=== PATIENT | female | born 1980 | race Caucasian/White ===

== ENCOUNTER 2024-10-14 17:34 | Inpatient (IN) | payer OTHER, SELFPAY ==
--- OUTSIDE RECORDS SUMMARY | 2024-10-14 17:44 | XMS_ITS | Encounter Summary ---
Author Organization [facility] Address [address] [place] [address] Care Team Providers Care Junior Project Manager Name Role Phone Oj Hi MD Unavailable Oumar Gamez MD Primary Care Provider [phone] Encounter Details Date Type Department Care Team (Latest Contact Info) Description 10/13/2024 Travel Social History Tobacco Use Types Packs/Day Years Used Date Smoking Tobacco: Every Day Cigarettes Smokeless Tobacco: Never Alcohol Use Standard Drinks/Week Comments No 0 (1 standard drink = 0.6 oz pur e alcohol) Comments No Sex and Gender Information Value Date Recorded Sex Assigned at Female 10/01/2023 4:37 PM EST Legal Sex Female 1:21 PM EDT Gender Identity Female 10/01/2023 4:37 PM EST Sexual Orientation Straight 09/07/2024 11 :19 PM EST documented as of this encounter Plan of Treatment Not on file documented as of this encounter Visit Diagnoses Not on filedocumented in this encounter Care Teams Junior Project Manager Relationship Specialty Start Date End Date Oj Hi MD PCP - Family Medicine 04/07/15 Oumar Gamez MD [address] [place] [address] PCP - General Internal Medicine 05/26/20 documented as of this encounter
--- OUTSIDE RECORDS SUMMARY | 2024-10-14 17:44 | XMS_ITS | Encounter Summary ---
Author Organization [facility] Address [address] [place] [address] Care Team Providers Care Physician In Private Practice Name Role Phone Ambar Patten MD Primary Care Provider Reason for Visit * Reason Onset Date Comments Encounter Created in Error 09/29/2024 Encounter Details Date Type Department Care Team (Late st Contact Info) Description 09/29/2024 Erroneous Telephone Encounter [address] [phone] Ambar Patten MD [address] [place] [address] Social History Tobacco Use Types Packs/Day Years Used Date Smoking Tobacco: Every Day Cigarettes Smokeless Tobacco: Never Comments:Smokes only 1-2/day trying to quit Alcohol Use Standard Drinks/Week Comments Not Currently 0 (1 standard drink = 0.6 oz pur e alcohol) Social Connections Answer Date Recorded Connectedness 0 05/12/2024 Financial Resource Strain Answer Date R ecorded Financial Resource Strain 0 2019 Stress Answer Date Recorded Stress 0 11/23/2019 Physical Activity Answer Date Recorded Physical Activity 0 11/23/2019 Food Insecurity Answer Date Recorded Food 0 10/23/2022 Transportation Needs Answer Date Record ed Transportation 0 10/23/2022 Housing Stability Answer Date Recorded Housing 0 10/23/2022 Safety and Environment Answer Date Stuart rded Safety 0 11/23/2019 Utilities Answer Date Recorded Utilities 0 10/23/2022 Employment Answer Date Recorded Stress 0 10/23/2022 Comments No Sex and Gender Information Value Date Recorded Sex Assigned at Female 09/02/2021 6:42 AM PST Legal Sex Female 12:31 PM PDT Gender Identity Female 09/02/2021 6:42 AM PST Sexual Orientation Choose not to disclose 2021 5:42 AM PST Sexual Orientation Don't know 10/11/2021 5: 42 AM PST documented as of this encounter Nursing Notes * Monalisa Lucas - 09/29/2024 2:33 PM EST error documented in this encounter Plan of Treatment Upcoming Encounters Date Type Department Care Team (Late st Contact Info) Description 10/24/2024 10:30 AM EST Telemedicine Visit [facility] [address] [place] [address] Iveth Acevedo, RN [address] [place] [address] 02/17/2025 12:00 PM EDT Office Visit [facility] [address] [phone] Elvia Mai NP [address] [place] [phone] documented as of this encounter Visit Diagnoses Not on filedocumented in this encounter Additional Health Concerns Assessment Noted Time PHQ-9 Depression Total Score: 7 02/28/20 23 9:20 AM PDT documented as of this encounter Care Teams Physician In Private Practice Relationship Specialty Start Date End Date Ambar Patten MD [address] [place] [address] PCP - General 07/07/22 documented as of this encounter
--- OUTSIDE RECORDS SUMMARY | 2024-10-14 17:44 | XMS_ITS | Encounter Summary ---
Author Organization [facility] Address [address] [place] [address] Care Team Providers Care Car Seat Maker Name Role Phone Ambar Patten MD Primary Care Provider Encounter Details Date Type Department Care Team (Late st Contact Info) Description 04/01/2023 Interim Notes [address] [phone] Abmar Patten MD [address] [place] [address] Social History Tobacco Use Types Packs/Day Years Used Date Smoking Tobacco: Every Day Cigarettes Smokeless Tobacco: Never Comments:Smokes only 1-2/day trying to quit Alcohol Use Standard Drinks/Week Comments Not Currently 0 (1 standard drink = 0.6 oz pur e alcohol) Social Connections Answer Date Recorded Social Connections and Isolation 0 11/23/2019 Financial Resource Strain Answer Date R ecorded [...] Don't know 10/11/2021 5: 42 AM PST COVID-19 Exposure Response Date Recorded In the last 10 days, have yo u been in contact with someone who was confirmed or suspected to have Coronavirus/COVID-19? No / Unsure 03/25/2023 1:20 PM EDT documented as of this encounter Plan of Treatment Upcoming Encounters Date Type Department Care Team (Late st Contact Info) Description 10/24/2024 10:30 AM EST Telemedicine Visit [address] [phone] Iveth Acevedo, KIRAN [address] [place] [address] 02/17/2025 12:00 PM EDT Office Visit [facility] [address] [place] [phone] Elvia Mai NP [address] [place] [address] documented as of this encounter Procedures Procedure Name Priority Date/Time Associated Diagnosis Comments COMPREHENSIVE METABOLIC PANEL Routine 04/01/2023 documented in this encounter Results * COMPREHENSIVE METABOLIC PANEL (04/01/2023) eGFR NOT 100.3 >=60 mL/min/1.7 3m2 [facility] AST 23 15 - 41 U/L [facility] ALT 21 14 - 54 U/L [facility] Blood Blood / Unknown 04/01/2023 us Provider [facility] - BLOOD DRAW Final Result [facility] [address] [place] [address], documented in this encounter Visit Diagnoses Not on filedocumented in this encounter Additional Health Concerns Assessment Noted Time PHQ-9 Depression Total Score: 7 02/28/20 23 9:20 AM PDT documented as of this encounter Care Teams Car Seat Maker Relationship Specialty Start Date End Date Ambar Patten MD [address] [place] [address] PCP - General 07/07/22 documented as of this encounter
--- OUTSIDE RECORDS SUMMARY | 2024-10-14 17:44 | XMS_ITS | Encounter Summary ---
Author Organization [facility] Address [address] [place] [address] Care Team Providers Care Public Address System Operator Name Role Phone Ambar Patten MD Primary Care Provider Encounter Details Date Type Department Care Team (Late st Contact Info) Description 10/09/2022 Interim Notes [address] [phone] Ambar Patten MD [address] [place] [address] Social History Tobacco Use Types Packs/Day Years Used Date Smoking Tobacco: Every Day Cigarettes Smokeless Tobacco: Never Alcohol Use Standard Drinks/Week Comments Not Currently 0 (1 standard drink = 0.6 oz pur e alcohol) Social Connections Answer Date Recorded Social Connections and Isolation 0 11/23/2019 Financial Resource Strain Answer Date R ecorded Financial Resource Strain 0 2019 Stress Answer Date Recorded Stress 0 11/23/2019 Physical Activity Answer Date Recorded Physical Activity 0 11/23/2019 Food Insecurity Answer Date Recorded Food 0 11/23/2019 Transportation Needs Answer Date Record ed Transportation 0 11/23/2019 Housing Stability Answer Date Recorded Housing 0 11/23/2019 Safety and Environment Answer Date Stuart rded Safety 0 11/23/2019 Utilities Answer Date Recorded Utilities 0 11/23/2019 Employment Answer Date Recorded Employment 0 11/23/2019 Comments No Sex and Gender Information Value [...] suspected to have Coronavirus/COVID-19? No / Unsure 10/08/2022 12:48 PM EST documented as of this encounter Plan of Treatment Upcoming Encounters Date Type Department Care Team (Late st Contact Info) Description 10/24/2024 10:30 AM EST Telemedicine Visit [address] [phone] Iveth Acevedo, RN [address] [place] [address] 02/17/2025 12:00 PM EDT Office Visit [place] [address] [address] [place] [phone] Elvia Mai NP [address] [place] [address] documented as of this encounter Procedures Procedure Name Priority Date/Time Associated Diagnosis Comments COMPREHENSIVE METABOLIC PANEL Routine 10/09/2022 documented in this encounter Results * COMPREHENSIVE METABOLIC PANEL (10/09/2022) eGFR NOT 87.7 >=60 mL/min/1.7 3m2 [facility] AST 18 15 - 41 U/L [facility] ALT 18 14 - 54 U/L [facility] Blood Blood / Unknown 10/09/2022 us Provider [facility] - BLOOD DRAW Final Result [facility] [address] [place] [address], [place] [phone] documented in this encounter Visit Diagnoses Not on filedocumented in this encounter Additional Health Concerns Assessment Noted Time PHQ-9 Depression Total Score: 11 022 10:00 AM PDT documented as of this encounter Care Teams Public Address System Operator Relationship Specialty Start Date End Date Ambar Patten MD [address] [place] [address] PCP - General 07/07/22 documented as of this encounter
--- OUTSIDE RECORDS SUMMARY | 2024-10-14 17:44 | XMS_ITS | Clinical Summary ---
Author Organization [facility] Address [address] [place] [address] Phone Care Team Providers Care Rail Specialist Name Role Phone Elias Hiory Primary Care Provider [phone] Allergies Active Allergy Reactions Criticality Noted Date Comments Haloperidol 06/08/2017 Medications clonazePAM (KlonoPIN) 2 MG tablet Take 2 mg by mouth 2 (two) times a day as needed for seizures. Active amphetamine-dext roamphetamine (ADDERALL) 30 MG tablet Take 30 mg by mouth 2 (two) times a day. Active buprenorphine-na loxone (SUBOXONE) 8-2 MG per SL tablet Place 1 tablet under the tongue daily. Active Social History Tobacco Use Types Packs/Day Years Used Date Smoking Tobacco: Every Day Alcohol Use Standard Drinks/Week Comments No 0 (1 standard drink = 0.6 oz pur e alcohol) Comments Unknown Sex and Gender Information Value Date Recorded Sex Assigned at Not on file Legal Sex Female 8:25 AM EDT Gender Identity Not on file Sexual Orientation Not on file Last Filed Vital Signs Vital Sign Reading Time Taken Comments Blood Pressure 102/77 06/11/2017 12:27 PM EDT Pulse 88 06/11/2017 12:27 PM EDT Temperature 37.3 ??C (99.1 ??F) 06/11/2017 1 2:27 PM EDT Respiratory Rate 18 06/11/2017 12:2 7 PM EDT Oxygen Saturation 97% 06/11/2017 12: 27 PM EDT Inhaled Oxygen Concentration - - Weight 52.5 kg (115 lb 11.9 oz) 017 11:51 AM EDT Height 160 cm (5' 3 ) 06/08/2017 11:51 AM EDT Body Mass Index 20.5 06/08/2017 11:51 AM EDT Plan of Treatment Not [place] [id number] Care Teams Rail Specialist Relationship Specialty Start Date End Date Oj Hi [address] [place] [phone] PCP - General 03/05/17
--- OUTSIDE RECORDS SUMMARY | 2024-10-14 17:44 | XMS_ITS | Encounter Summary ---
Author Organization [facility] Address [address] [place] [address] Care Team Providers Care Shaker Tender Name Role Phone Ambar Patten MD Primary Care Provider Encounter Details Date Type Department Care Team (Late st Contact Info) Description 01/14/2024 Interim Notes [address] [phone] Ambar Patten MD [address] [place] [address] Social History Tobacco Use Types Packs/Day Years [...] AM PST documented as of this encounter Plan of Treatment Upcoming Encounters Date Type Department Care Team (Late st Contact Info) Description 10/24/2024 10:30 AM EST Telemedicine Visit [facility] [address] [place] [address] Iveth Acevedo, RN [address] [place] [address] 02/17/2025 12:00 PM EDT Office Visit [facility] [address] [place] [address] Elvia Mai NP [address] [place] [address] documented as of this encounter Procedures Procedure Name Priority Date/Time Associated Diagnosis Comments COMPREHENSIVE METABOLIC PANEL Routine 01/14/2024 documented in this encounter Results * COMPREHENSIVE METABOLIC PANEL (01/14/2024) eGFR NOT 89.7 >=60 mL/min/1.7 3m2 [facility] AST 21 15 - 41 U/L [facility] ALT 19 14 - 54 U/L [facility] Blood Blood / Unknown 01/14/2024 us Provider [facility] - BLOOD DRAW Final Result [facility] [address] [place], [place] [address] [phone] documented in this encounter Visit Diagnoses Not on filedocumented in this encounter Additional Health Concerns Assessment Noted Time PHQ-9 Depression Total Score: 7 02/28/20 23 9:20 AM PDT documented as of this encounter Care Teams Shaker Tender Relationship Specialty Start Date End Date Ambar Patten MD [address] [place] [address] PCP - General 07/07/22 documented as of this encounter
--- OUTSIDE RECORDS SUMMARY | 2024-10-14 17:44 | XMS_ITS | Encounter Summary ---
Author Organization [facility] Address [address] [place] [address] Care Team Providers Care Ceo & Board Director Name Role Phone Ambar Patten MD Primary Care Provider Reason for Visit * Reason Comments Medication Assisted Treatment (MAT) Encounter Details Date Type Department Care Team (Late st Contact Info) Description 10/10/2024 12:00 PM EST Telemedicine Visit [address] [phone] Iveth Acevedo, RN [address] [place] [address] Opioid use disorder, severe, on maintenance therapy ([facility]) (Primary Dx) Social History Tobacco Use Types Packs/Day Years [...] AM PST documented as of this encounter Progress Notes * Iveth Acevedo RN - 10/11/2024 5:17 PM EST TELEHEALTH ENCOUNTER Does the patient consent to this telehealth visit? YES Location of patient: Telehealth Provided in Patient's Home Distant site (location of provider): Provider Home [facility], [place], [place] Technology used to render telehealth service: Audio only. Please indicate why video was not used: Video not indicated/necessary for this encounter Visit duration: 11-20 mins Patient acknowledgement of updated Notice of Privacy Practices If SA55 ESIG Notice of Privacy Practices 2019 is not present in the media tab of the chart, use [id number] or [id number] to document. Suboxone Follow-up Yesika is a 44 year old female who presents for Suboxone follow-up Current Outpatient Medications Medication Sig Dispense Refill buprenorphine-naloxone (SUBOXONE FILM) 4-[address] 1 Strip under the tongue once daily for14 days To be taken with 8 mg strips for a total daily dose of 20mg 14 Each 0 buprenorphine-naloxone (SUBOXONE FILM) 8-[address] 1 Strip under the tongue 2 (two) times daily for 14 days To be taken with 4mg film for total daily dose of 20mg 28 Each 0 clonazePAM (KLONOPIN) 1 mg tablet Take 1 mg by mouth once daily as needed for anxiety ondansetron ODT (ZOFRAN-ODT) 4 mg disintegrating tablet Take 4 mg by mouth every 8 (eight) hours asneeded dextroamphetamine-amphetamine (ADDERALL) 20 mg tablet Take 1 Tablet by mouth 2 (two) times daily NOSUBSTITUTIONS PLEASE 60 Tablet 0 DENTA 5000 PLUS 1.1 % crea USE TOOTHPASTE TWICE A DAY. polyethylene glycol, PEG, 3350 (MIRALAX) 17 gram packet Miralax 17 gram oral powder packet Take 1 packet every day by oral route. lactulose (CHRONULAC) 10 gram/15 mL solution as needed No current facility-administered medications for this visit. Suboxone details: Current dose of Suboxone 16 mg TDD How often is patient taking Suboxone? 8 mg twice daily If more than once daily, what is the reason? Cravings Suboxone pill count is accurate: no - not indicated Medication change since last visit: no Current problem list Patient Active Problem List Diagnosis Attention deficit hyperactivity disorder (ADHD) Hepatitis C virus infection cured after antiviral drug therapy PTSD (post-traumatic stress disorder) Opioid use disorder, severe, on maintenance therapy ([facility]) Generalized anxiety disorder History of cervical cancer Drug-induced constipation High risk medication use Anxiety Bipolar disorder ([facility]) Malignant neoplasm of left female breast ([facility]) Opioid dependence ([facility]) Poor venous access Right arm cellulitis Suicidal ideation Sedative, hypnotic or anxiolytic-related disorder ([facility]) Opioid abuse, in remission ([facility]) Dependence on nicotine from cigarettes Social history: Social History Tobacco Use Smoking status: Every Day Current packs/day: 0.25 Types: Cigarettes Smokeless tobacco: Never Tobacco comments: Smokes only 1-2/day trying to quit Substance Use Topics Alcohol use: Not Currently Social History Substance and Sexual Activity Drug Use Not Currently Attending group/counseling as directed: no Currently receiving Psych treatment:Yes Attending outside meetings/support groups: no Changes in housing/employment: no Emotional/mental changes/issues: no Use of illicit substances since last visit: no Smoking: yes Alcohol: no Marijuana: no Is patient experiencing: Cravings: No Withdrawal symptoms No Side effects: no Last UTOX: 08/23/24, positive for Amphetamines, Bup, THC, Gavin, and Meth Patient is doing well on 16 mg Suboxone TDD, takes 8 mg twice daily. Patient denies cravings, side effects, or withdrawals. Denies the use of any illicit substances since last appointment. Patient's last appt with this RN was on 08/23/24. She denies any illicit substance use since our last appt. She states she had went to the ER on 09/07/24 and 09/11/24 stating she was suicidal but she admits today she was just trying to get placement to a detox or inpatient program to help get her son back. Per ER records, UTOX negative for illicit substances. She is staying with her friend at this time. Her phone is broken so she is using her friends phone until she can get a new one. Yesika did call over this past weekend to property assessment monitor requesting a Suboxone RX as she was out. Patient should have hadenough Suboxone until today, 10/10/24. She is unsure if she misplaced some or what. She is encouragedto keep her Suboxone in a safe and secure spot. She does state she has not had chemo in 4 months due to everything being hectic in her life. She is tearful with where things are right now. She deniesan SI/HI. She plans on looking into facilities that over inpatient behavioral health services as she feels like it might help get her son back. She is reminded of the importance of keeping her appts and UTOX requirements of the MAT program. She expresses understanding of this. Next Suboxone RX ready for pickle processor today. Otherwise, she denies any other changes or concerns at this time. Patient was advised to call back with any questions or concerns at [phone] extension [phone]. They agree with plan of care. Will follow-up with them in 2 weeks. Lab Results Component Value Date AST 25 06/14/2024 Lab Results Component Value Date ALT 19 06/14/2024 documented in this encounter Plan of Treatment Upcoming Encounters Date Type Department Care Team (Late st Contact Info) Description 10/24/2024 10:30 AM EST Telemedicine Visit [address] [phone] Iveth Acevedo RN [address] [place] [address] 02/17/2025 12:00 PM EDT Office Visit [place] [address] [address] [phone] Elvia Mai NP [address] [place] [address] documented as of this encounter Visit Diagnoses Diagnosis Opioid use disorder, severe, on maintenance therapy ([facility] Primary documented in this encounter Additional Health Concerns Assessment Noted Time PHQ-9 Depression Total Score: 7 02/28/20 23 9:20 AM PDT documented as of this encounter Care Teams Ceo & Board Director Relationship Specialty Start Date End Date Ambar Patten MD [address] [place] [address] PCP - General 07/07/22 documented as of this encounter
--- OUTSIDE RECORDS SUMMARY | 2024-10-14 17:44 | XMS_ITS | Encounter Summary ---
Author Organization [facility] Address [address] [place] [address] Care Team Providers Care Student Development Coordinator Name Role Phone Ambar Patten MD Primary Care Provider Encounter Details Date Type Department Care Team (Late st Contact Info) Description 08/01/2022 Interim Notes [address] [phone] Ambar Patten MD [address] [place] [address] Social History Tobacco Use Types Packs/Day Years [...] suspected to have Coronavirus/COVID-19? No / Unsure 07/21/2022 4:24 PM EST documented as of this encounter Plan of Treatment Upcoming Encounters Date Type Department Care Team (Late st Contact Info) Description 10/24/2024 10:30 AM EST Telemedicine Visit [address] [phone] Iveth Acevedo, RN [address] [place] [address] 02/17/2025 12:00 PM EDT Office Visit [place] [address] [address] [place] [phone] Elvia Mai NP [address] [place] [address] documented as of this encounter Procedures Procedure Name Priority Date/Time Associated Diagnosis Comments COMPREHENSIVE METABOLIC PANEL Routine 07/30/2022 documented in this encounter Results * COMPREHENSIVE METABOLIC PANEL (07/30/2022) eGFR NOT >60.0 >=60 mL/min/1.7 3m2 [facility] AST 22 15 - 41 U/L [facility] ALT 23 14 - 54 U/L [facility] Blood Blood / Unknown 07/30/2022 us Provider [facility] - BLOOD DRAW Final Result Performing Organization Address [facility]/State/ZIP Co de Phone Number [facility] [address] [place] [address], [place] [phone] documented in this encounter Visit Diagnoses Not on filedocumented in this encounter Additional Health Concerns Assessment Noted Time PHQ-9 Depression Total Score: 11 022 10:00 AM PDT documented as of this encounter Care Teams Student Development Coordinator Relationship Specialty Start Date End Date Ambar Patten MD [address] [place] [address] PCP - General 07/07/22 documented as of this encounter
--- OUTSIDE RECORDS SUMMARY | 2024-10-14 17:44 | XMS_ITS | Encounter Summary ---
Author Organization [facility] Address [address] [place] [address] Care Team Providers Care Sign Builder Name Role Phone Ambar Patten MD Primary Care Provider Encounter Details Date Type Department Care Team (Latest Contact Info) Description 10/10/2024 Travel Social History Tobacco Use Types Packs/Day [...] Description 10/24/2024 10:30 AM EST Telemedicine Visit [facility] [address] [place] [address] Iveth Acevedo, RN [address] [place] [address] 02/17/2025 12:00 PM EDT Office Visit [facility] [address] [place] [address] Elvia aMi NP [address] [place] [address] documented as of this encounter Visit Diagnoses Not on filedocumented in this encounter Additional Health Concerns Assessment Noted Time PHQ-9 Depression Total Score: 7 02/28/20 23 9:20 AM PDT documented as of this encounter Care Teams Sign Builder Relationship Specialty Start Date End Date Ambar Patten MD [address] [place] [address] PCP - General 07/07/22 documented as of this encounter
--- OUTSIDE RECORDS SUMMARY | 2024-10-14 17:44 | XMS_ITS | Encounter Summary ---
Author Organization [facility] Address [address] [place] [address] Care Team Providers Care Gis Coordinator Name Role Phone Oj Hi MD Unavailable Oumar Gamez MD Primary Care Provider [phone] Reason for Visit * Reason Comments General Assessment Psychiatric Evaluation * Auth/Cert (Routine) Specialty Diagnoses / Procedures Referred By Contac t Referred To Contact Diagnoses Suicidal ideation Referral ID Status Reason Start Date Expiration Date Visits Re quested Visits Authorized [id number] 1 1 Encounter Details Date Type Department Care Team (Late st Contact Info) Description 10/13/2024 6:41 AM EST - 10/14/2024 3:02 PM EST Emergency [facility] - [address] [phone] Marcos Licea MD [address] [place] [address] [place] [address] Elisa Cantrell PA-C [address] [place] [id number] Mansi Montano PA [address] [place] [id number] Suicidal ideation (Primary Dx); UTI (urinary tract infection) Discharge Disposition: Psychiatric Hospital other than [facility] Social History Tobacco Use Types Packs/Day Years [...] PM EST documented as of this encounter Last Filed Vital Signs Vital Sign Reading Time Taken Comments Blood Pressure 104/72 10/14/2024 2:25 AM EST Pulse 93 10/14/2024 2:25 AM EST Temperature 36.2 ??C (97.2 ??F) 10/13/2024 6:50 AM ES T Respiratory Rate 19 10/14/2024 2:25 AM EST Oxygen Saturation 99% 10/14/2024 2:25 AM EST Inhaled Oxygen Concentration - - Weight 49.9 kg (110 lb) 10/13/2024 7:08 AM EST Height 160 cm (5' 3 ) 10/13/2024 7:08 AM EST Body Mass Index 19.49 10/13/2024 7:08 AM EST documented in this encounter Discharge Summaries * NIGHAT Frankel - 10/14/2024 1:15 PM EST OBSERVATION DISCHARGE SUMMARY PRESENTING COMPLAINT: Suicidal thoughts CURRENT ASSESSMENT: Calm, cooperative OBSERVATION COURSE: Close Observation, Lab Work (*Abnormal values have resolved or been addressed), and Psychiatric Evaluation DISPOSITION: patient is medically stable, but requires inpatient psychiatric evaluation to address an unstable behavioral condition. DISCHARGE DIAGNOSIS: Suicidal Ideation DISCHARGE INSTRUCTIONS: Instructions not given to patient OBSERVATION DISCHARGE TIME Instructions for continuing care to all caregivers [x] Preparation of DC records [x] Prescriptions, referrals, ambulance medical necessity forms [] Coordinating care with the patient or caregivers [x] Discussing care plans & patient education [] Filling out senior care or rehabilitation facility forms [] TOTAL TIME < 30 MINUTES [x] TOTAL TIME > 30 MINUTES [] NIGHAT Frankel 10/14/24 1315 Cosigned by Ariella Tam MD at 10/14/2024 1:31 PM EST Associated attestation - Anel, Ariella Padron MD - 10/14/2024 1:31 PM EST I confirm that I have discussed this patient's case with the AHP, and that I have reviewed the AHP???s documentation in the patient???s medical record. I have discussed the evaluation, plan of care and disposition of the patient with the assigned AHP. I agree with the AHP???s documented findings and plan of care for the patient. documented in this encounter Medications at Time of Discharge amphetamine-dextroam phetamine (ADDERALL) 20 MG tablet Take 1.5 tablets (30 mg total) by mouth 2 (two) times a day buprenorphine-naloxo ne (SUBOXONE) 2-0.5 MG per sublingual tablet Place 2 tablets under the tongue daily buprenorphine-naloxo ne (SUBOXONE) 8-2 MG per sublingual tablet Place 1 tablet under the tongue 2 (two) times a day cephalexin (KEFLEX) 500 MG capsule Take 1 capsule (500 mg total) by mouth every 6 (six) hours for 7 days 28 capsule 10/14/2024 5 clonazePAM (KLONOPIN) 1 MG tablet Take 1 tablet (1 mg total) by mouth daily as needed clonazePAM (KlonoPIN) 1 MG tabletIndications:Be nzodiazepine withdrawal without complication (HCC) Take 1 tablet (1 mg total) by mouth daily for 3 days 3 tablet 09/08/2024 ondansetron (ZOFRAN-ODT) 4 MG disintegrating tablet Dissolve 1 tablet (4 mg total) in mouth every 8 (eight) hours as needed for nausea or vomiting for up to 4 days 12 tablet 09/08/2024 documented as of this encounter Progress Notes * Ashwini Griffin, DRYWALL FINISHER FOREMAN - 10/14/2024 1:27 PM EST Brass Chaser Initial Progress Note Patient accepted to [facility] on next available ambulance. Accepting MD is Dr. Dutta. Pt is on Medicaid. No insurance authorization needed. TUMOR REGISTRAR updated patient at the bedside. She requests that SW update DCF worker regarding transfer if call back is received. Otherwise states that she will update family and request that her daughter's father bring her clothing. Pt appreciative of SW assistance. Transfer form completed and provided to ED PROGRAM DIR. Section 12a being completed by provider. PLAN: Transfer to [facility] for inpatient psych treatment. ADELAIDE Jaimes 10/14/2024 1:27 PM * Manisha Ruiz - 10/14/2024 10:07 AM EST Behavioral Health Family Medicine Physician Note Referral sent to [facility] as they noted many openings for today * ADELAIDE Cowan - 10/14/2024 9:36 AM EST Behavioral Health - Re-assessment Date of Encounter: 10/14/2024 Intervention started: 9:13AM Intervention ended: 9:30AM Telehealth: No Reason for Encounter: Follow up behavioral health re-assessment 17 minutes spent face to face with patient on 10/14/2024. Today's Encounter was complex due to patient requested that others be involved in their care duringthe visit Patient: Yesika Verde Age: 44 y.o. Gender: female Referring Provider: Oumar Gamez MD PCP: Oumar Gamez MD Assessment Yesika Verde was re-assessed today due to suicidal ideation. Chart was reviewed and the patient was identified by name and . Confidentiality and limits to confidentiality were reviewed. Patient was initially evaluated by SW yesterday evening and recommended for inpatient psych level of carerelative to depression and SI. TUMOR REGISTRAR met with the patient at bedside. She is alert and oriented x 4. Patient recalls this creative services writer from previous encounter last month. Pt states that she was unable to follow through on plan for PHP dueto house-surfing. She feels overwhelmed by many psychosocial stressors in her life, including insecure housing due to DCF involvement and inability to live with her children and mother, lack of supports, cancer diagnosis, lack of transportation and phone, etc. Patient was receiving chemotherapy treatment every 3 weeks but stopped participating in care about 4 months ago and has not had contact with her oncologist despite that provider's attempt at reaching her. Pt states it's in my bones. There's no point. I'm going to anyway. I just wish it would be quicker. She continually states, I can't do this anymore. I have nowhere to go. I don't have people who care about me. Reports recently speaking with her mother and children (8 y.o and 16 y.o.) over the phone. When asked how they'd r eact if she committed suicide, she said, I don't think they'd be that surprised or care. Pt states I'll just get some fentanyl and shoot it up when asked about suicide plan. She states she last attempted suicide via this method a couple months ago... but I woke up unfortunately. She does not recall what led to suicide attempt at that time. She denies any active substance use and states, there's a difference between using and trying to kill myself. Last used fentanyl outside of a suicideattempt about 5 years ago. Pt is upset at not receiving prescribed medications in the ED. She requests that this creative services writer f/u with nursing about this. She also asks that that creative services writer f/u with DCF and signs an BUNNY for this creative services writer to call Mary. She requests to leave AMA and is informed that she's unable to do this r/t behavioral health hold. Pt asks this creative services writer, wouldn't you want to too if you were me?, and then asks this creative services writer to leave the room because I don't want to talk anymore. Voicemail left for patient's ongoing DCF Worker, Mary ([phone]), with request for call back. Diagnosis/Problems F33.2 Major Depressive Disorder, recurrent episode, severe Problem List[1] Plan Discharge/Transition Plan: Involuntary inpatient psychiatric hospitalization. Referred to community health worker for indigent resources Referred to assistant track coach for N/A Does pt meet CCS level or care, and if not why?: No, too acute. Recent failed community discharge. HPI/Interval History PHQ-9 and MAHNAZ-7 completed with patient during initial assessment on 10/13/2024. Depression Screening PHQ-9 [Not at all (0) Several days (1) More than half the days (2) Nearly every day (3)] Little interest or pleasure in doing things: 3 Feeling down, depressed, or hopeless: 3 Trouble falling or staying asleep, or sleeping too much: 3 Feeling tired or having little energy: 3 Poor appetite or overeatin Feeling bad about yourself - or that you are a failure or have let yourself or your family down: 3 Trouble concentrating on things, such as reading the newspaper or watching television: 3 Moving or speaking so slowly that other people could have noticed. Or the opposite - being so fidgety or restless that you have been moving around a lot more than usual: 0 Thoughts that you would be better off , or of hurting yourself in some way: 3 PHQ-9 Total Score: 24 0 - 4: None to Minimal Depression 5 - 9: Mild Depression 10 - 14: Moderate Depression 15 - 19: Moderately Severe Depression 20 - 27: Severe Depression Anxiety Screening MAHNAZ 7 Over the last 2 weeks, how often have you been bothered by the following problems? [Not at all (0) Several days (1) More than half the days (2) Nearly every day (3)] Feeling nervous, anxious or on edge 3 Not being able to stop or control worrying 3 Worrying too much about different things 3 Trouble relaxing 3 Being so restless that it is hard to sit still 3 Becoming easily annoyed or irritable 0 Feeling afraid as if something awful might happen 3 MAHNAZ-7 Total Score: 18 0 - 4: None to Minimal Anxiety 5 - 9: Mild Anxiety 10 - 14: Moderate Anxiety 15 - 21: Severe Anxiety Psychotherapy Plan Focus/target symptoms: Psychotherapy today focused on assessing psychiatric acuity, identifying possible alternative discharge plans to divert from inpatient LOC if appropriate, and managing psychosocial stressors that are contributing to current distress. Goals: Reduce anxiety and depressive/mood symptoms , Facilitate improved coping with psychosocial stressors contributing to distress, and Facilitate Safety/stabilization Interventions Employed supportive psychotherapy interventions today to facilitate reduced mood, anxiety, psychiatric symptoms, distress, and to improve coping skills with identified stressors., Motivational interviewing employed to assess patient's willingness/desire to adhere to recommended medical treatments and assignments. , and Employed acceptance and commitment interventions to emphasize mindfulness, acceptance without struggle, as well as value guided actions. Patient's response/feedback to therapy session: Patient identifies multiple psychosocial stressors that are contributing to her distress (i.e. insecure housing, DCF involvement/inability to see her children, lack of supports, health condition, lack of transportation and phone, etc.). She is not receptive to this creative services writer's attempts at assisting with processing through/reducing emotions related to these stressors. Her current psychiatric acuity impacts her ability to fully engage with this creative services writer and she ultimately asks this creative services writer to leave. Mental Status Examination Appearance - Disheveled, alert Behavior - Restless, fidgety Speech - Normal rate, tone, and rhythm, occasionally soft/mumbled requiring repetition. Affect - mood-congruent Mood - Anxious and Depressed Thought Process - Linear Thought Content - suicidal with plan, does not want to live anymore Psychosis - no AH/VH, not responding to internal stimuli on eval Insight - Insightful Judgement - No Impairment Suicide/Homicide Ideation/Intent/Means: SI with plan, means, and intent Risk Assessment: Current Risk Behavior: Description: Suicidal Thoughts/Ideation:Description: Ideation, Plan, Means, and Intent History of Risk Behavior or Harmful Acts to Self or Others: Yes Electronically signed by: ADELAIDE Jaimes 10/14/2024 9:36 AM [1] Patient Active Problem List Diagnosis Right arm cellulitis Suicidal ideation Suicidal ideations * NIGHAT Frankel - 10/14/2024 9:28 AM EST OBSERVATION PROGRESS NOTE CC: Reason for ED Observation: Ingestion/OD [] SI/HI [x] ETOH Abuse [] Psych Eval [x] Stopped taking medications [] Aggressive behavior (outbursts) [] Substance abuse [] Bizarre behavior [] HPI: Assoc. signs & symptoms: Hallucinations (-) [] Hallucinations (+) [] Suicidal thoughts (-) [] Suicidal thoughts (+) [x] Agitation (-) [] Agitation (+) [] //////////////////////////////////////////////// /////////////////////////////////////////////////// ///// ///////////////////////////////////////////////// ////// Time course: Improving [] Unchanged [x] Worsening [] //////////////////////////////////////////////// /////////////////////////////////////////////////// ///// ///////////////////////////////////////////////// ///// Severity of symptoms: Mild [] Moderate [x] Severe [] //////////////////////////////////////////////// /////////////////////////////////////////////////// ////// ///////////////////////////////////////////////// ///// Modifying Factors: Social stressors (-) [] Social stressors (+) [x] Substance abuse (-) [] Substance abuse (+) [] Off Medications (-) [] Off Medications (+) [] ROS: Constitutional: Fever(-) [x] Fever (+) [] Neuro: Witnessed seizure activity (-) [x] Witnessed seizure activity(+) [] Respiratory: SOB (-) [x] SOB (+) [] Cardiac: Palpitations (-) [] Palpitations (+) [] GI: N/V (-) [] N/V (+) [] : Frequency (-) [] Frequency (+) [] Eyes: Vision changes (-) [] Vision changes (+) [] ENT: Sore throat (-) [] Sore throat (+) [] Skin: Rashes (-) [] Rashes (+) [] MSK: Muscle aches (-) [] Muscle aches (+) [] All other systems reviewed Negative [] EXAM: Neuro: Responds appropriately to questions [x] Responds inappropriately to questions [] Speech clear [x] Speech slurred [] /////////////////////////////////////////////// /////////////////////////////////////////////////////// ///////////////////////////////////////////////// //// Psych: Thought process organized [] Thought process disorganized [] Normal mood [] Depressed [] Manic [] /////////////////////////////////////////////// ////////////////////////////////////////////////// ///// ///////////////////////////////////////////////// //// Constitutional: Alert, without distress [x] Distressed [] Respiratory Respirations unlabored [x] Respirations labored [] Skin: NML color, without pallor [x] Pallor [] Cardiac: Heart sounds NML [] Murmur noted [] GI: Abdomen Soft/NT [] Abdomen distended [] MSK: Gait steady [] Gait unsteady [] ASSESSMENT: Based on my history, physical exam and ED course, the patient's behavioral condition continues to be unstable and requires further observation to determine the final disposition. [x] Depression resolved [] Depression continues with suicidal thoughts [] Depression continues without suicidal thoughts [] Substance abuse with continued intoxication [] Substance abuse without continued intoxication [] Behavioral disturbance continues [] Risk to self or others if released with out supervision or follow-up approved and arranged by psychiatric crisis workers. [] PLAN: Continue to monitor for significant changes in medical psychosis, and psychiatric status, observe for and treat agitation or withdrawal symptoms, coordinate care with social work team and ensure patient safety. [x] OBSERVATION TIME (Subsequent day) Preparing to see the patient (eg, review of tests, notes etc.) [x] Obtaining/reviewing separately obtained history [] Performing a medically appropriate exam [x] Counseling/educating the patient/family/caregiver [] Ordering medications, tests, procedures [] Referring/ communicating w/ other HCPs [] Documenting today's note [x] Communicating test results patient/family/caregiver [] Care coordination [] Total time (mins): 25[x] 35[] 50[] NIGHAT Frankel 10/14/24 0986 * Elisa Cantrell, PA-C - 10/13/2024 11:15 PM EST OBSERVATION PROGRESS NOTE CC: Reason for ED Observation: Ingestion/OD [] SI/HI [x] ETOH Abuse [] Psych Eval [x] Stopped taking medications [] Aggressive behavior (outbursts) [] Substance abuse [] Bizarre behavior [] HPI: Assoc. signs & symptoms: Hallucinations (-) [] Hallucinations (+) [] Suicidal thoughts (-) [] Suicidal thoughts (+) [x] Agitation (-) [] Agitation (+) [] //////////////////////////////////////////////// /////////////////////////////////////////////////// ///// ///////////////////////////////////////////////// ////// Time course: Improving [] Unchanged [x] Worsening [] //////////////////////////////////////////////// /////////////////////////////////////////////////// ///// ///////////////////////////////////////////////// ///// Severity of symptoms: Mild [] Moderate [x] Severe [] //////////////////////////////////////////////// /////////////////////////////////////////////////// ////// ///////////////////////////////////////////////// ///// Modifying Factors: Social stressors (-) [] Social stressors (+) [x] Substance abuse (-) [] Substance abuse (+) [] Off Medications (-) [] Off Medications (+) [] ROS: Constitutional: Fever(-) [x] Fever (+) [] Neuro: Witnessed seizure activity (-) [x] Witnessed seizure activity(+) [] Respiratory: SOB (-) [x] SOB (+) [] Cardiac: Palpitations (-) [] Palpitations (+) [] GI: N/V (-) [] N/V (+) [] : Frequency (-) [] Frequency (+) [] Eyes: Vision changes (-) [] Vision changes (+) [] ENT: Sore throat (-) [] Sore throat (+) [] Skin: Rashes (-) [] Rashes (+) [] MSK: Muscle aches (-) [] Muscle aches (+) [] All other systems reviewed Negative [] EXAM: Neuro: Responds appropriately to questions [] Responds inappropriately to questions [x] Speech clear [] Speech slurred [] /////////////////////////////////////////////// /////////////////////////////////////////////////////// ///////////////////////////////////////////////// //// Psych: Thought process organized [] Thought process disorganized [] Normal mood [] Depressed [x] Manic [] /////////////////////////////////////////////// ////////////////////////////////////////////////// ///// ///////////////////////////////////////////////// //// Constitutional: Alert, without distress [x] Distressed [] Respiratory Respirations unlabored [x] Respirations labored [] Skin: NML color, without pallor [x] Pallor [] Cardiac: Heart sounds NML [] Murmur noted [] GI: Abdomen Soft/NT [] Abdomen distended [] MSK: Gait steady [] Gait unsteady [] ASSESSMENT: Based on my history, physical exam and ED course, the patient's behavioral condition continues to be unstable and requires further observation to determine the final disposition. [x] Depression resolved [] Depression continues with suicidal thoughts [] Depression continues without suicidal thoughts [] Substance abuse with continued intoxication [] Substance abuse without continued intoxication [] Behavioral disturbance continues [] Risk to self or others if released with out supervision or follow-up approved and arranged by psychiatric crisis workers. [x] PLAN: Continue to monitor for significant changes in medical psychosis, and psychiatric status, observe for and treat agitation or withdrawal symptoms, coordinate care with social work team and ensure patient safety. [x] OBSERVATION TIME (Subsequent day) Preparing to see the patient (eg, review of tests, notes etc.) [x] Obtaining/reviewing separately obtained history [] Performing a medically appropriate exam [x] Counseling/educating the patient/family/caregiver [] Ordering medications, tests, procedures [] Referring/ communicating w/ other HCPs [] Documenting today's note [x] Communicating test results patient/family/caregiver [] Care coordination [] Total time (mins): 25[x] 35[] 50[] Elisa Cantrell PA-C 10/13/24 2316 documented in this encounter Consult Notes * Cinda Jack, [facility] - 10/13/2024 5:09 PM ESTAssociated Order(s): CONSULT TO MENTAL HEALTH ASSESSMENT Referred by: ED physician Chief Complaint (Reason for visit): SI Intervention Started: 6 Intervention Ended: 7 Telehealth: Yes If yes, Consult method video Patient location: [facility] Clinician location: [facility] Patient consents to telehealth: Yes Goal of Intervention: mental health evaluation. A consult was placed to assess for SI . Chart was reviewed and the patient was identified by name and . Reviewed confidentiality and limits to confidentiality prior to evaluation. Plan Disposition plan: Inpatient involuntary dual diagnosis hospitalization Psychosocial History Yesika Verde is a 44 y.o. Yesika Verde is a 44 y.o. single female who presented to [facility] today with with suicidal ideation. ED triage note indicates that her feet were cold and numb and she was having a fight with her roommate so she called the police. When the police came she endorsed SI. Pt presented to [facility] ED on 09/11 with similar complaints. Pt has a history of breast cancer, depression, hepatitis-C, YASMIN. Pt denied using ETOH or illicite drugs at this time. She has a prescriber. She reports that she has not taken her medications in since yesterday. Pt reports a h/o SA via overdose. TUMOR REGISTRAR met with the patient at bedside via teams. She is alert, oriented x 4, calm, and cooperative throughout assessment. She was teary at times. She endorses SI with out a plan. Pt denies HI/AH/VH. Ptreports that her mother is taking care of her children and that she is currently not allowed to be around them. Pt reports that this is the contact lens edge buffer for suicidal feelings. Additionally pt reportsthat she recently lost her phone with all of her numbers and has been missing important medical appointments. Pt receives chemo every three weeks. In a pt's consult on September 11 MATEUSZ spoke to pt's mother who believes that chemo that pt receives is affecting the pt's brain and making her fly off the handle quickly . MATEUSZ recommends that pt go inpt for safety, stabilization and medication management. MATEUSZ informed pt of bed search process. Positive for: anxiety, depression, hopelessness, anhedonia, and suicidal ideation Negative for: love, psychosis, panic, and homicidal ideation Collateral contacts: Depression Screening PHQ-9 [Not at all (0) Several days (1) More than half the days (2) Nearly every day (3)] Little interest or pleasure in doing things: 3 Feeling down, depressed, or hopeless: 3 Trouble falling or staying asleep, or sleeping too much: 3 Feeling tired or having little energy: 3 Poor appetite or overeatin Feeling bad about yourself - or that you are a failure or have let yourself or your family down: 3 Trouble concentrating on things, such as reading the newspaper or watching television: 3 Moving or speaking so slowly that other people could have noticed. Or the opposite - being so fidgety or restless that you have been moving around a lot more than usual: 0 Thoughts that you would be better off , or of hurting yourself in some way: 3 PHQ-9 Total Score: 24 0 - 4: None to Minimal Depression 5 - 9: Mild Depression 10 - 14: Moderate Depression 15 - 19: Moderately Severe Depression 20 - 27: Severe Depression Anxiety Screening MAHNAZ 7 Over the last 2 weeks, how often have you been bothered by the following problems? [Not at all (0) Several days (1) More than half the days (2) Nearly every day (3)] Feeling nervous, anxious or on edge 3 Not being able to stop or control worrying 3 Worrying too much about different things 3 Trouble relaxing 3 Being so restless that it is hard to sit still 3 Becoming easily annoyed or irritable 0 Feeling afraid as if something awful might happen 3 MAHNAZ-7 Total Score: 18 0 - 4: None to Minimal Anxiety 5 - 9: Mild Anxiety 10 - 14: Moderate Anxiety 15 - 21: Severe Anxiety Past Psychiatric History Current treatment providers: med prescriber History of inpatient psychiatric hospitalizations: Yes History of suicide attempts/self-injurious behavior: Yes History of violence: No Access to weapons: No History of post- depression No Substance Use History and Assessment Pt denies recent use. Tox screen confirms Family Psychiatric History: noncontributory Developmental/Social History Marital status: single Living arrangements: currently staying with a friend in [place] Support system: family, friends Employment status: unemployed Source of income: [employer] and food stamps Education level: Masters in [employer] Healthcare access/barriers: none identified ADLS: independent IADLS: independent HCP: No Guardian: No Legal history:Yes history:No Trauma history: Yes Mental Status Exam Appearance: alert well appearing Behavior: restless, calm, and cooperative Consciousness/Orientation: oriented to time, place, person, and reason for visit Eye contact: mainly direct Motor activity: slight psychomotor agitation Mood: anxious, appropriate to circumstances, concerned, and depressed Affect: mood congruent Speechnormal rate, tone and rhythm Thought process: normal Thought content: suicidal Perception (hallucinations): none Delusions: none elicited Suicidal/Homicidal Ideation:Suicidal Ideation Concentration/attention: down slightly Memory: recent and remote memory intact Intelligence/fund of knowledge: appears average Impulsivity: impulsive Reliability: fair historian Insight: good Judgment: unimpaired Psychological Risk Assessment Current Risk Behavior: Description: Suicidal Thoughts/Ideation/plan/means/intent:Description: Ideation History of Risk Behavior or Harmful Acts to Self or Others: Yes Risk and protective factors: Risk: cancer, depression, AYSMIN. Impression/Formulation Patient is a 44 y.o. female with depression. She reports multiple psychosocial stressors including active DCF involvement, not having a license, and ongoing cancer treatment. She has a history of substance use disorder though denies any issues at this time, which is supported by her tox screen. Pt is endorsing SI and has a history of past attempts. SW believes that pt should go inpt at this time for safety, stabilization and medication management Diagnosis:F33.1 Major Depressive Disorder Therapy plan: Target symptoms:depression/anxiety Goals of therapy:mental health evaluation and discharge planning Patients capacity to participate and benefit from therapy:pt has capacity Estimated duration of treatment/number of sessions:unk Treatment is expected to improve the health status and/or functioning of the patient. yes Does pt meet CCS level or care, and if not why?:no, too acute CindaADELAIDE Espinoza 10/13/2024 @ 5:09 PM documented in this encounter ED Notes * Yumiko Anaya RN - 10/14/2024 2:47 PM EST [facility] personnel present for transportation to [facility]. * Yumiko Anaya RN - 10/14/2024 2:03 PM EST Report given to Jank[facility] at [facility] * Jackie Lowry RN - 10/14/2024 8:00 AM EST [facility] and left message to try and get medication list. Waiting for call back. * Uyen Correa RN - 10/14/2024 7:00 AM EST Pt enters my care,sleeping at present. * Jackie Lowry RN - 10/14/2024 2:53 AM EST Patient enters my care at this time. Patient resting on stretcher with even respirations and eyes closed. healthcare market consultant remains in place at this time. Will continue to monitor. * Stefani Patel RN - 10/14/2024 2:25 AM EST Pt asking for something for anxiety, given a drink and provider notified. * Stefani Patel RN - 10/13/2024 7:19 PM EST Pt enters my care at this time. Pt resting even RR no complaints. * Melina Lockwood RN - 10/13/2024 6:30 PM EST Pt given nain devi, sitting up watching TV at this time. * Melina Lockwood RN - 10/13/2024 6:09 PM EST Switching to teams for evaluation as caregility is not working properly at this time. * Melina Lockwood RN - 10/13/2024 6:04 PM EST Pt evaluated via caregility on TV in room by MATEUSZ Jack * Melina Lockwood RN - 10/13/2024 5:06 PM EST Py sitting up eating dinner at this time * Melina Lockwood RN - 10/13/2024 4:19 PM EST Voicemail left with [facility] pharmacy for med rec * Melina Lockwood RN - 10/13/2024 2:45 PM EST Belongings located in locker # 6 * Melina Lockwood RN - 10/13/2024 1:39 PM EST Attempted to call pharmacy for med rec, they are closed for lunch will attempt after 2pm * Uyen Correa RN - 10/13/2024 11:06 AM EST PT SLEEPING. * Uyen Correa RN - 10/13/2024 9:00 AM EST PT SLEEPING * Marcos Licea MD - 10/13/2024 8:28 AM EST Service Date: ED Arrival Date 10/13/24 Chief Complaint Chief Complaint Patient presents with ??? General Assessment HPI Patient brought into the ER with a reported suicidal ideation. Patient is withdrawn, not communicate to give with this provider. However she does say yes when asked if she is feeling suicidal. ROS Review of Systems Past History Past Medical History: Diagnosis Date ??? Cancer (HCC) ??? Depression ??? Hepatitis C ??? IVDU (intravenous drug user) ??? UTI (urinary tract infection) Past Surgical History: Procedure Laterality Date ??? SECTION ??? DILATION AND CURETTAGE ??? TUBAL LIGATION Family History Problem Relation Age of Onset ??? No Known Problems Mother ??? No Known Problems Father ??? No Known Problems Brother Social History[1] LMP/OB Status OB Status Ablation [8] Physical Exam Triage Vitals BP 10/13/24 0650 110/70 Heart Rate 10/13/24 0650 80 Resp 10/13/24 0650 22 Temp 10/13/24 0650 97.2 ??F (36.2 ??C) Temp src -- SpO2 10/13/24 0650 97 % Weight 10/13/24 0708 110 lb (49.9 kg) Height 10/13/24 0708 5' 3 (1.6 m) Body mass index is 19.49 kg/m??. [place] body weight: 52.4 kg (115 lb 8.3 oz) Physical Exam Vitals and nursing note reviewed. Constitutional: General: She is not in acute distress. Appearance: She is not diaphoretic. HENT: Head: Normocephalic and atraumatic. Nose: No rhinorrhea. Right Nostril: No epistaxis. Left Nostril: No epistaxis. Eyes: General: No scleral icterus. Right eye: No discharge. Left eye: No discharge. Conjunctiva/sclera: Conjunctivae normal. Cardiovascular: Comments: No JVD Pulmonary: Effort: Pulmonary effort is normal. No respiratory distress. Breath sounds: No stridor. Musculoskeletal: General: No deformity. Cervical back: No torticollis. Skin: Coloration: Skin is not cyanotic, jaundiced or pale. Neurological: Mental Status: She is alert. Cranial Nerves: No dysarthria or facial asymmetry. Motor: No tremor. Psychiatric: Mood and Affect: Mood normal. Behavior: Behavior is cooperative. ED Course Labs reviewed by me: Labs Reviewed CBC AND AUTO DIFFERENTIAL - Abnormal; Notable for the following components: Result Value MPV 6.8 (*) All other components within normal limits COMPREHENSIVE METABOLIC PANEL - Abnormal; Notable for the following components: BUN 24 (*) All other components within normal limits ETHANOL - Normal TOXICOLOGY SCREEN, URINE Narrative: The following orders were created for panel order Toxicology screen, urine. Procedure Abnormality Status --------- ------ Toxicology screen, urine[[id number]] Please view results for these tests on the individual orders. TOXICOLOGY SCREEN, URINE (NON FCU) EXTRA TUBES Narrative: The following orders were created for panel order Extra Tubes. Procedure Abnormality Status --------- ------ Red Top[[id number]] In process Light Blue Top[[id number]] In process Please view results for these tests on the individual orders. RED TOP LIGHT BLUE TOP Radiology imaging reviewed by me: No orders to display Procedures No notes on file Progress LAMS Score: 0 (10/13/24 0648) Medical Decision Making Patient is medically cleared, will be evaluated by social work Problems Addressed: Suicidal ideation: acute illness or injury that poses a threat to life or bodily functions Amount and/or Complexity of Data Reviewed Labs: ordered. Risk Decision regarding hospitalization. Clinical Impressions: Clinical Impressions: as of 10/14/24 1314 Suicidal ideation UTI (urinary tract infection) Care Transferred: Disposition Data Unavailable Marcos Licea MD 10/13/24 0831 [1] Social History Socioeconomic History ??? Marital status: Single Tobacco Use ??? Smoking status: Every Day Current packs/day: 0.50 Types: Cigarettes ??? Smokeless tobacco: Never Vaping Use ??? Vaping status: no Substance and Sexual Activity ??? Alcohol use: No ??? Drug use: No Comment: clean since 11/2014 ??? Sexual activity: Yes Social History Narrative Pt lives at home with son and parents * Lupe Britt RN - 10/13/2024 7:06 AM EST Report to [facility] * Uyen Correa RN - 10/13/2024 7:06 AM EST Pt to room 1 and immediately laid sown and fell asleep. * Lupe Britt RN - 10/13/2024 6:59 AM EST Blood sent Aware of need for urine [facility] Belongings to [place] [id number] * Lupe Britt RN - 10/13/2024 6:46 AM EST Initially called police due to cold and numb feet Having a fight with roommate Told police suicidal as well Tells RN her children are in DCF and she can't get them back unless she goes inpt She was here last time and wasn't suicidal enough to go inpt Also a cancer pt at [facility] and stopped tx documented in this encounter Miscellaneous Notes * ED Provider Note: Additional - NIGHAT Frankel - 10/14/2024 1:17 PM EST Patients urinalysis nonspecific but may show a urinary tract infection at this time. Patient will be treated with Keflex. Culture pending. * ED Procedure Note - Ariella Tam MD - 10/14/2024 12:23 PM ESTAssociated Order(s): EKG electrocardiogram EKG electrocardiogram Date/Time: 10/14/2024 12:23 PM Performed by: Ariella Tam MD Authorized by: NIGHAT Frankel Measurements: BPM: 76 Findings: Rate: normal Rhythm: Sinus rhythm Normal intervals noted Conduction: normal ST Segments: normal T Waves: non-specific changes Clinical impression: normal ECG Interpreted by ED physician Ariella Tam MD 10/14/24 1224 documented in this encounter Plan of Treatment Pending Results Name Type Priority Associated Diagnoses Date /Time Urine Culture and [place] Count Microbiology STAT 10/14/2024 12:21 PM EST Scheduled Orders Name Type Priority Associated Diagnoses Orde r Schedule Urine Culture and [place] Count Microbiology STAT Once for 1 Occur rences starting 10/14/2024 until 10/14/2024 documented as of this encounter Procedures Procedure Name Priority Date/Time Associated Diagnosis Comments ECG 12-LEAD STAT 10/14/2024 12:23 PM EST URINE MICROSCOPIC (SEDIMENT ONLY) STAT 10/14/2024 12:21 PM EST URINALYSIS, REFLEX TO CULTURE STAT 10/14/2024 12:21 PM EST TOXICOLOGY SCREEN, URINE ([facility] - OXY/BUP/FENT) STAT 10/13/2024 6:50 PM EST TOXICOLOGY SCREEN, URINE (NON FCU) STAT 10/13/2024 6:50 PM EST TOXICOLOGY SCREEN, URINE STAT 10/13/2024 6:50 PM EST EXTRA TUBES Routine 10/13/2024 7:13 AM EST RED TOP Routine 10/13/2024 7:13 AM EST LIGHT BLUE TOP Routine 10/13/2024 7:13 AM EST CBC AND AUTO DIFFERENTIAL STAT 10/13/2024 7:03 AM EST ETHANOL STAT 10/13/2024 7:03 AM EST COMPREHENSIVE METABOLIC PANEL STAT 10/13/2024 7:03 AM EST documented in this encounter Results * ECG 12-LEAD (10/14/2024 12:23 PM EST) Ariella Teresa MD - 10/14/2024 12:23 PM EST Ariella Tam MD ? 10/14/2024 12:24 PM EKG electrocardiogram Date/Time: 10/14/2024 12:23 PM Performed by: Ariella Tam MD Authorized by: NIGHAT Frankel ??Measurements: ??BPM: 76 Findings: Rate: normal Rhythm: ??Sinus rhythm Normal intervals noted Conduction: normal ST Segments: normal T Waves: non-specific changes Clinical impression: normal ECG Interpreted by ED physician us Mansi DISLA ECG ORDERABLES Final Result * (ABNORMAL) Urine Microscopic (sediment only) (10/14/2024 12:21 PM EST) WBC >100(A) 0 - 2 HPF 10/14/2024 12:38 PM [facility] WBC Clumps >30(A) 0 - 1 HPF 10/14/2024 12:38 PM [facility] RBC 21-30(A) 0-2 HPF HPF 10/14/2024 12:38 PM [facility] Squam Epithelial Many(A) Few HPF 10/14/2024 12:38 PM [facility] Non-Squamous Epithelil Few(A) None Seen HPF 10/14/2024 12:38 PM [facility] Mucus Many(A) Few HPF 10/14/2024 12:38 PM [facility] Bacteria Moderate(A ) None Seen HPF 10/14/2024 12:38 PM [facility] Hyaline Casts UA 11-20(A) 0 - 2 LPF 10/14/2024 12:38 PM [facility] Urine Urine specimen obtained by clean catch procedure / Unknown Collection / Unknown 10/14/2024 12:21 PM EST 10/14/2024 12:23 PM EST Mansi DISLA URINE ORDERABLES Final Result Performing Organization Address City/State/[place] Co de Phone Number [facility] [address] [place] [phone] * (ABNORMAL) Urinalysis, Reflex to Culture (10/14/2024 12:21 PM EST) Color Light-Orang e(A) Colorless, Yellow, Light-Yello w, Dark-Yellow 10/14/2024 12:34 PM [facility] Clarity, UA Extra Turbid(A) Clear 10/14/2024 12:34 PM [facility] Specific [place] 1.025 1.000 - 1.030 10/14/2024 12:34 PM [facility] pH 6.5 5.0 - 8.0 10/14/2024 12:34 PM [facility] Protein 50(A) Negative, 10 , 20 , 30 mg/dL 10/14/2024 12:34 PM [facility] Glucose Normal Normal, 30 , 50 mg/dL 10/14/2024 12:34 PM [facility] Ketones Negative Negative, Trace mg/dL 10/14/2024 12:34 PM [facility] Blood 0.1(A) Negative, 0.03 mg/dL 10/14/2024 12:34 PM [facility] Bilirubin UA Negative Negative mg/dL 10/14/2024 12:34 PM [facility] Urobilinogen Normal Normal mg/dL 10/14/2024 12:34 PM [facility] Nitrite Negative Negative 10/14/2024 12:34 PM [facility] Leukocyte Esterase 500(A) Negative, 25 Teresa/uL 10/14/2024 12:34 PM [facility] Urine Urine specimen obtained by clean catch procedure / Unknown Collection / Unknown 10/14/2024 12:21 PM EST 10/14/2024 12:23 PM [facility] - 10/14/2024 12:34 PM EST A urine culture is being performed on this specimen due to established reflex criteria us Mansi DISLA URINE ORDERABLES Final Result Performing Organization Address City/[facility]/ZIP Co de Phone Number [address] [address] * (ABNORMAL) Toxicology screen, urine (10/13/2024 6:50 PM EST) [facility] Oxycodone Qualitative Urine None Detected None Detected 10/13/2024 10:27 PM [facility] Buprenorphine Qualitative Urine Detected(A) None Detected 10/13/2024 10:27 PM [facility] Fentanyl Qualitative, Ur None Detected None Detected 10/13/2024 10:27 PM [facility] Urine 10/13/2024 6:50 PM EST 10/13/2024 7:59 PM EST us Marcos Licea MD URINE ORDERABLES Final Result Performing Organization Address City/[facility]/ZIP Co de Phone Number [facility] [address] [place] [phone] * (ABNORMAL) Toxicology screen, urine (10/13/2024 6:50 PM EST) Pathologist [facility] Amphetamine Qualitative, Ur Detected(A) None Detected 10/13/2024 8:00 PM [facility] Barbiturates Qualitative, Ur None Detected None Detected 10/13/2024 8:00 PM [facility] Benzodiazepines Qualitative, Ur Detected(A) None Detected 10/13/2024 8:00 PM [facility] Methadone Qualitative, Ur None Detected None Detected 10/13/2024 8:00 PM [facility] Opiates Qualitative, Ur None Detected None Detected 10/13/2024 8:00 PM [facility] Cannabinoids Qualitative, Ur None Detected None Detected 10/13/2024 8:00 PM [facility] Cocaine Qualitative, Ur None Detected None Detected 10/13/2024 8:00 PM [facility] Creatinine, Urine 184.0 29.0 - 226.0 mg/dL 10/13/2024 8:00 PM [facility] Urine 10/13/2024 6:50 PM EST 10/13/2024 6:50 PM [facility] - 10/13/2024 8:00 PM EST This urine immunoassay drug method is for medical SCREENING only and should not be used for non-medical (employment,legal) purposes. ??The test result(s) may be affected by dietary and over the counter medications. Negative cut-offs for these tests are set to detect DRUG ABUSE. ??Therapeutic levels of these drugs may not be detected. ?? The negative cut-offs for the drug classes are: Cocaine, Methadone, Opiates 300 ng/ml; Barbituates, Benzodiazepines 200 ng/ml; Amphetamines 1000 ng/ml; Cannabinoids 50 ng/ml. As this is a screening methodology, any positive results are UNCONFIRMED. ??Confirmation of positive results may be requested from the laboratory within 5 days. ??All test results should be interpreted in context of the patient's clinical condition. Marcos Licea MD URINE ORDERABLES Final Result [facility] [address] [place] [phone] * Light Blue Top (10/13/2024 7:13 AM EST) Extra Tube Auto resulted. 10/13/2024 11:16 AM [facility] Comment:Hold for add-ons. Blood Venipuncture / Unknown 10/13/2024 7:13 AM EST 10/13/2024 7:06 AM EST us Triage Protocol Emergency MD LAB BLOOD ORDERABLE S Final Result [facility] [address] [place] [phone] * Red Top (10/13/2024 7:13 AM EST) Extra Tube Auto resulted. 10/13/2024 11:16 AM [facility] Comment:Hold for add-ons. Blood Venipuncture / Unknown 10/13/2024 7:13 AM EST 10/13/2024 7:06 AM EST us Triage Protocol Emergency MD LAB BLOOD ORDERABLE S Final Result Performing Organization Address [facility]/[place] Co de Phone Number [facility] [address] [place] [phone] * (ABNORMAL) Comprehensive metabolic panel (10/13/2024 7:03 AM EST) Pathologist [facility] Sodium 139 136 - 145 mEq/L 10/13/2024 7:25 AM [facility] Potassium 3.8 3.6 - 5.2 mEq/L 10/13/2024 7:25 AM [facility] Chloride 106 98 - 109 mEq/L 10/13/2024 7:25 AM [facility] CO2 26 21 - 32 mEq/L 10/13/2024 7:25 AM [facility] Anion Gap 7 4 - 15 mEq/L 10/13/2024 7:25 AM [facility] Glucose 79 74 - 106 mg/dL 10/13/2024 7:25 AM [facility] Creatinine 0.81 0.58 - 1.02 mg/dL 10/13/2024 7:25 AM [facility] Comment:Reference ranges hav e been changed to reflect new method. eGFR (Female) >60 60 - 115 mL/min 10/13/2024 7:25 AM [facility] BUN 24(H) 7 - 18 mg/dL 10/13/2024 7:25 AM [facility] Calcium 8.7 8.5 - 10.1 mg/dL 10/13/2024 7:25 AM [facility] Total Protein 6.9 6.4 - 8.2 g/dL 10/13/2024 7:25 AM [facility] Albumin 3.7 3.4 - 5.0 g/dL 10/13/2024 7:25 AM [facility] A/G Ratio 1.2 1.0 - 2.3 10/13/2024 7:25 AM [facility] Total Bilirubin 0.4 0.2 - 1.0 mg/dL 10/13/2024 7:25 AM [facility] AST 23 15 - 37 U/L 10/13/2024 7:25 AM [facility] Alkaline Phosphatase 63 46 - 116 IU/L 10/13/2024 7:25 AM [facility] ALT 19 12 - 78 U/L 10/13/2024 7:25 AM [facility] Blood Structure of part of right upper limb / Unknown Venipuncture / Unknown 10/13/2024 7:03 AM EST 10/13/2024 7:06 AM EST us Marcos Licea MD LAB BLOOD ORDERABLES Final Res ult [facility] [address] [place] [phone] * (ABNORMAL) CBC and Auto Differential (10/13/2024 7:03 AM EST) WBC 9.8 4.8 - 11.2 10*3/??L 10/13/2024 7:12 AM [facility] RBC 4.23 3.60 - 5.40 10*6/??L 10/13/2024 7:12 AM [facility] HGB 13.5 12.0 - 15.8 g/dL 10/13/2024 7:12 AM [facility] HCT 41.0 36.0 - 48.0 % 10/13/2024 7:12 AM [facility] MCV 96.9 82.0 - 98.0 fL 10/13/2024 7:12 AM [facility] MCH 31.9 27.0 - 35.0 pg 10/13/2024 7:12 AM [facility] MCHC 32.9 32.0 - 37.0 g/dL 10/13/2024 7:12 AM [facility] RDW 13.6 12.0 - 15.0 % 10/13/2024 7:12 AM [facility] PLT 289 150 - 400 10*3/??L 10/13/2024 7:12 AM [facility] MPV 6.8(L) 7.0 - 14.0 fL 10/13/2024 7:12 AM [facility] Neut % 59.6 45.0 - 85.0 % 10/13/2024 7:12 AM [facility] Lymph % 30.6 15.0 - 45.0 % 10/13/2024 7:12 AM [facility] [place] % 5.5 0.0 - 12.0 % 10/13/2024 7:12 AM [facility] Eos % 3.6 0.0 - 7.0 % 10/13/2024 7:12 AM [facility] Baso % 0.7 0.0 - 3.0 % 10/13/2024 7:12 AM [facility] NRBC% 0 0 /100 WBC /100 WBC 10/13/2024 7:12 AM [facility] Neut # 5.8 2.2 - 9.5 10*3/??L 10/13/2024 7:12 AM [facility] Lym # 3.0 0.7 - 5.0 10*3/??L 10/13/2024 7:12 AM [facility] [place] # 0.5 0.0 - 1.3 10*3/??L 10/13/2024 7:12 AM [facility] Eos # 0.4 0.0 - 0.4 10*3/??L 10/13/2024 7:12 AM [facility] Baso # 0.1 0.0 - 0.3 10*3/??L 10/13/2024 7:12 AM [facility] Blood Structure of part of right upper limb / Unknown Venipuncture / Unknown 10/13/2024 7:03 AM EST 10/13/2024 7:06 AM EST Marcos Licea MD LAB BLOOD ORDERABLES Final Res ult Performing Organization Address City/[facility]/ZIP Co de Phone Number [facility] [address] [place] [phone] * Ethanol (10/13/2024 7:03 AM EST) Ethanol Lvl 3 <10 mg/dL 10/13/2024 7:26 AM EST [facility] Blood Structure of part of right upper limb / Unknown Venipuncture / Unknown 10/13/2024 7:03 AM EST 10/13/2024 7:06 AM EST Marcos Licea MD LAB BLOOD ORDERABLES Final Res ult Performing Organization Address [facility]/[place] Co de Phone Number [facility] [address] [place] [phone] documented in this encounter Visit Diagnoses Diagnosis Suicidal ideation- Primary Suicidal ideation UTI (urinary tract infection) Urinary tract infection, site not specified documented in this encounter Admitting Diagnoses Diagnosis Suicidal ideation documented in this encounter Administered Medications Active Administered Medications - up to 3 most recent administrations Medication Order MAR Action Action Date Dose Rate Site amphetamine-dextroamphetamine (ADDERALL) 10 MG tablet 30 mg 30 mg, Oral, 2 times daily, First dose on Thu10/14/24 at 1015 Given 10/14/2024 2:16 PM EST 30 mg Given 10/14/2024 10:18 AM EST 30 mg buprenorphine-naloxone (SUBOXONE) 2-0.5 MG per sublingual tablet 2 tablet 2 tablet, Sublingual, Daily, First dose on Thu10/14/24 at 1500, Must be given SUBLINGUALLY. Patients should keep the tablets under the tongue until dissolved. Swallowing the tablets or giving via enteral tube reduces the bioavailability of the drug. Given 10/14/2024 2:16 PM EST 2 tablets buprenorphine-naloxone (SUBOXONE) 8-2 MG per sublingual tablet 1 tablet 1 tablet, Sublingual, 2 times daily, First dose on Thu10/14/24 at 1015, Must be given SUBLINGUALLY. Patients should keep the tablets under the tongue until dissolved. Swallowing the tablets or giving via enteral tube reduces the bioavailability of the drug. Given 10/14/2024 10:18 AM EST 1 tablet clonazePAM (KlonoPIN) tablet 1 mg 1 mg, Oral, Daily PRN, anxiety, Starting on Thu10/14/24 at 1004, Look-alike / Sound-alike Medication Given 10/14/2024 10:18 AM EST 1 mg Inactive Administered Medications - up to 3 most recent administrations Medication Order MAR Action Action Date Dose Rate Site cephalexin (KEFLEX) capsule 500 mg 500 mg, Oral, Once, Indications: Uncomplicated Urinary Tract Infection, On Thu10/14/24 at 1405, For 1 doseIndications:Uncomplicated Urinary Tract Infection Given 10/14/2024 2:15 PM EST 500 mg documented in this encounter Active and Recently Administered Medications Times are shown in EST. Scheduled Medication Order 10/12/2024 10/13/2024 10/14/2024 amphetamine-dextroamphetamine (ADDERALL) 10 MG tablet 30 mg 30 mg, Oral, 2 times daily, First dose on Thu10/14/24 at 1015 1018 (Given - Provid er: Jackie Lowry RN)1416 (Given - Provider: Yumiko Anaya RN) buprenorphine-naloxone (SUBOXONE) 2-0.5 MG per sublingual tablet 2 tablet 2 tablet, Sublingual, Daily, First dose on Thu10/14/24 at 1500, Must be given SUBLINGUALLY. Patients should keep the tablets under the tongue until dissolved. Swallowing the tablets or giving via enteral tube reduces the bioavailability of the drug. 1416 (Given - Provid er: Yumiko Anaya RN) buprenorphine-naloxone (SUBOXONE) 8-2 MG per sublingual tablet 1 tablet 1 tablet, Sublingual, 2 times daily, First dose on Thu10/14/24 at 1015, Must be given SUBLINGUALLY. Patients should keep the tablets under the tongue until dissolved. Swallowing the tablets or giving via enteral tube reduces the bioavailability of the drug. 1018 (Given - Provid er: Jackie Lowry RN)2100 (Due) cephalexin (KEFLEX) capsule 500 mg (COMPLETED) 500 mg, Oral, Once, Indications: Uncomplicated Urinary Tract Infection, On Thu10/14/24 at 1405, For 1 dose 1415 (Given - Provid er: Yumiko Anaya RN) PRN Medication Order 10/12/2024 10/13/2024 10/14/2024 clonazePAM (KlonoPIN) tablet 1 mg 1 mg, Oral, Daily PRN, anxiety, Starting on Thu10/14/24 at 1004, Look-alike / Sound-alike Medication 1018 (Given - Provid er: Jackie Lowry RN) documented in this encounter Care Teams Gis Coordinator Relationship Specialty Start Date End Date Oj Hi MD PCP - Family Medicine 04/07/15 Oumar Gamez MD [address] [place] [phone] PCP - General Internal Medicine 05/26/20 documented as of this encounter
--- OUTSIDE RECORDS SUMMARY | 2024-10-14 17:44 | XMS_ITS | Encounter Summary ---
Author Organization [facility] Address [address] [place] [address] Care Team Providers Care Display Maker Name Role Phone Ambar Patten MD Primary Care Provider Encounter Details Date Type Department Care Team (Late st Contact Info) Description 10/23/2022 Interim Notes [address] [phone] Ambar Patten MD [address] [place] [phone] Social History Tobacco Use Types Packs/Day Years [...] Description 10/24/2024 10:30 AM EST Telemedicine Visit [address] [phone] Iveth Acevedo, RN [address] [place] [address] 02/17/2025 12:00 PM EDT Office Visit [place] [address] [address] [place] [phone] Elvia Mai, GERTRUDIS [address] [place] [phone] documented as of this encounter Procedures Procedure Name Priority Date/Time Associated Diagnosis Comments COMPREHENSIVE METABOLIC PANEL Routine 10/23/2022 documented in this encounter Results * COMPREHENSIVE METABOLIC PANEL (10/23/2022) eGFR NOT 87.7 >=60 mL/min/1.7 3m2 [facility] AST 23 15 - 41 U/L [facility] ALT 21 14 - 54 U/L [facility] Blood Blood / Unknown 10/23/2022 us Provider [facility] - BLOOD DRAW Final Result [facility] [address] [place] [address], documented in this encounter Visit Diagnoses Not on filedocumented in this encounter Additional Health Concerns Assessment Noted Time PHQ-9 Depression Total Score: 11 06/13/ 022 10:00 AM PDT documented as of this encounter Care Teams Display Maker Relationship Specialty Start Date End Date Ambar Patten MD [address] [place] [phone] PCP - General 07/07/22 documented as of this encounter
--- OUTSIDE RECORDS SUMMARY | 2024-10-14 17:44 | XMS_ITS | Encounter Summary ---
Author Organization [facility] Address [address] [place] [address] Care Team Providers Care Roll Tender Name Role Phone Ambar Patten MD Primary Care Provider Encounter Details Date Type Department Care Team (Late st Contact Info) Description 02/04/2024 Interim Notes [address] [phone] Ambar Patten MD [address] [place] [phone] Social History Tobacco Use Types Packs/Day Years [...] Description 10/24/2024 10:30 AM EST Telemedicine Visit [facility] [address] [place] [phone] Iveth Acevedo, RN [address] [place] [address] 02/17/2025 12:00 PM EDT Office Visit [facility] [address] [place] [address] Elvia Mai NP [address] [place] [address] documented as of this encounter Procedures Procedure Name Priority Date/Time Associated Diagnosis Comments COMPREHENSIVE METABOLIC PANEL Routine 02/04/2024 documented in this encounter Results * COMPREHENSIVE METABOLIC PANEL (02/04/2024) eGFR NOT 101.2 >=60 mL/min/1.7 3m2 [facility] AST 23 15 - 41 U/L [facility] ALT 21 14 - 54 U/L [facility] Blood Blood / Unknown 02/04/2024 us Provider [facility] - BLOOD DRAW Final Result [facility] [address] [place], [place] [address] [phone] documented in this encounter Visit Diagnoses Not on filedocumented in this encounter Additional Health Concerns Assessment Noted Time PHQ-9 Depression Total Score: 7 02/28/20 23 9:20 AM PDT documented as of this encounter Care Teams Roll Tender Relationship Specialty Start Date End Date Ambar Patten MD [address] [place] [phone] PCP - General 07/07/22 documented as of this encounter
--- OUTSIDE RECORDS SUMMARY | 2024-10-14 17:44 | XMS_ITS | Encounter Summary ---
Author Organization [facility] Address [address] [place] [address] Care Team Providers Care Ball Worker Name Role Phone Ambar Patten MD Primary Care Provider Encounter Details Date Type Department Care Team (Late st Contact Info) Description 06/15/2024 Interim Notes [address] [phone] Ambar Patten MD [address] [place] [phone] Social History Tobacco Use Types Packs/Day Years [...] Description 10/24/2024 10:30 AM EST Telemedicine Visit [facility] [address] [place] [phone] Iveth Acevedo, RN [address] [place] [address] 02/17/2025 12:00 PM EDT Office Visit [facility] [address] [place] [phone] Elvia Mai NP [address] [place] [address] documented as of this encounter Procedures Procedure Name Priority Date/Time Associated Diagnosis Comments COMPREHENSIVE METABOLIC PANEL Routine 06/14/2024 documented in this encounter Results * COMPREHENSIVE METABOLIC PANEL (06/14/2024) eGFR NOT 96.6 >=60 mL/min/1.7 3m2 [facility] AST 25 15 - 41 U/L [facility] ALT 19 14 - 54 U/L [facility] Blood Blood / Unknown 06/14/2024 us Provider [facility] - BLOOD DRAW Final Result [facility] [address] [place], [place] [address] [phone] documented in this encounter Visit Diagnoses Not on filedocumented in this encounter Additional Health Concerns Assessment Noted Time PHQ-9 Depression Total Score: 7 02/28/20 23 9:20 AM PDT documented as of this encounter Care Teams Ball Worker Relationship Specialty Start Date End Date Ambar Patten MD [address] [place] [phone] PCP - General 07/07/22 documented as of this encounter
--- OUTSIDE RECORDS SUMMARY | 2024-10-14 17:44 | XMS_ITS | Encounter Summary ---
Author Organization [facility] Address [address] [place] [address] Care Team Providers Care Clinical Documentation Spec Name Role Phone Ambar Patten MD Primary Care Provider Encounter Details Date Type Department Care Team (Latest Contact Info) Description 09/16/2024 Travel Social History Tobacco Use Types Packs/Day [...] Description 10/24/2024 10:30 AM EST Telemedicine Visit [facility] [address] [place] [address] Iveth Acevedo, RN [address] [place] [address] 02/17/2025 12:00 PM EDT Office Visit [facility] [address] [place] [phone] Elvia Mai NP [address] [place] [phone] documented as of this encounter Visit Diagnoses Not on filedocumented in this encounter Additional Health Concerns Assessment Noted Time PHQ-9 Depression Total Score: 7 02/28/20 23 9:20 AM PDT documented as of this encounter Care Teams Clinical Documentation Spec Relationship Specialty Start Date End Date Ambar Patten MD [address] [place] [address] PCP - General 07/07/22 documented as of this encounter
--- OUTSIDE RECORDS SUMMARY | 2024-10-14 17:44 | XMS_ITS | Data Portability ---
Author Organization [place] [facility] , [employer] [facility] Address [address] [place] [address] Assessment No assessment recorded. Plan of Treatment Reminders Order Date Submit Date Provider Last Modified By Organization Details Last Modified Time Details Appointments None recorded. Lab TSH, serum or plasma 2016 017 [email or web address] [address], [address], [place], [address], 7 16:32:19 CMP, serum or plasma 2016 017 [facility] [address], [place], [address], 7 16:31:56 CBC w/ auto diff 2016 017 [facility] [address], [address], [place], [address], 7 16:31:07 drug screen, urine 2016 017 [facility] [address], [address], [place], [address], 7 16:21:03 drug screen, urine 2016 017 [email or web address] [email or web address] [address], [address], [place], [address], 7 10:33:28 Referral None recorded. Procedures None recorded. Surgeries None recorded. Imaging None recorded. Medication Orders clonazepam 0.5 mg tablet [address]/Pharmacy #1250, [address] [place], [address], 7 16:29:40 Miralax 17 gram oral powder packet 2016 017 [facility]/Pharmacy #1250, [address] [place], [address], 7 16:28:42 Adderall 30 mg tablet [address]/Pharmacy #1250, [address] [place], [address], 7 16:29:40 Adderall 15 mg tablet 2016 017 [address], [address] [place], [address], 7 16:29:40 Adderall 15 mg tablet 2016 017 [address], [address] [place], [address], 7 11:26:37 Adderall 30 mg tablet 2016 017 [address], [address] [place], [address], 7 11:26:37 clonazepam 0.5 mg tablet [address]/Pharmacy #1247, [address] [place], [address], 7 12:08:00 Adderall 15 mg tablet [address]/Pharmacy #1247, [address] [place], [address], 7 12:08:00 Adderall 30 mg tablet [address]/Pharmacy #1247, [address] [place], [address], 7 12:08:00 Adderall 15 mg tablet [address]/Pharmacy #1247, [address] [place], [address], 7 10:32:53 Adderall 30 mg tablet [address]/Pharmacy #1247, [address] [place], [address], 7 10:32:53 Patient TargetsNo targets recorded. Patient Instructions Encounter Date Encounter Id Patient Instructions Last Modified By Organization Details Last Modified Time 12/09/2016 [id number] attention defici t hyperactivity disorder (ADHD) in adults: care instructions [email or web address] Not available 12/09/2016 16:29:40 01/27/2017 [id number] attention defici t hyperactivity disorder (ADHD) in adults: care instructions [email or web address] Not available 02/07/2017 08:46:43 Reason for Referral None Reported. Results Created Date Observation Date Name Description Value Unit Range Abnormal Flag Note LastModifiedBy Organization Detail LastModifiedTime 12/10/19 17 12/10/2016 CBC w/ auto diff WBC 8.55 x10(3 )/uL 3.66-1 1.99 Not Available [facility] ([facility]) [address], [place], [address], 12/10/2016 04:28:50 12/10/19 17 12/10/2016 CBC w/ auto diff RBC 4.20 x10(6 )/uL 3.60-5 .50 Not Available [facility] ([facility]) [address], [place], [address], 12/10/2016 04:28:50 12/10/19 17 12/10/2016 CBC w/ auto diff HGB 12.8 gm/dL 11.5-1 5.6 Not Available [facility] ([facility]) [address], [place], [address], 12/10/2016 04:28:50 12/10/19 17 12/10/2016 CBC w/ auto diff HCT 38.3 % 34.5-4 6.5 Not Available [facility] ([facility]) [address], [place], [address], 12/10/2016 04:28:50 12/10/19 17 12/10/2016 CBC w/ auto diff MCV 91.2 fL 80.0-1 00.0 Not Available [facility] ([facility]) [address], [place], [address], 12/10/2016 04:28:50 12/10/19 17 12/10/2016 CBC w/ auto diff MCH 30.5 pg 25.0-3 4.1 Not Available [facility] ([facility]) [address], [place], [address], 12/10/2016 04:28:50 12/10/19 17 12/10/2016 CBC w/ auto diff MCHC 33.4 gm/dL 29.0-3 5.0 Not Available [facility] ([facility]) [address], [place], [address], 12/10/2016 04:28:50 12/10/19 17 12/10/2016 CBC w/ auto diff RDW 14.3 % 10.9-1 6.9 Not Available [facility] ([facility]) [address], [place], [address], 12/10/2016 04:28:50 12/10/19 17 12/10/2016 CBC w/ auto diff polys 49.6 % 36.0-7 8.0 Not Available [facility] ([facility]) [address], [place], [address], 12/10/2016 04:28:50 12/10/19 17 12/10/2016 CBC w/ auto diff lymphs 39.6 % 12.0-4 8.0 Not Available [facility] ([facility]) [address], [place], [address], 12/10/2016 04:28:50 12/10/19 17 12/10/2016 CBC w/ auto diff monos 6.4 % 0.0-13 .0 Not Available [facility] ([facility]) [address], [place], [address], 12/10/2016 04:28:50 12/10/19 17 12/10/2016 CBC w/ auto diff eos 4.1 % 0.0-8. 0 Not Available [facility] ([facility]) [address], [place], [address], 12/10/2016 04:28:50 12/10/19 17 12/10/2016 CBC w/ auto diff basos 0.2 % 0.0-2. 0 Not Available [facility] ([facility]) [address], [place], [address], 12/10/2016 04:28:50 12/10/19 17 12/10/2016 CBC w/ auto diff immature granulocytes 0.1 % 0.0-1. 6 Not Available [facility] ([facility]) [address], [place], [address], 12/10/2016 04:28:50 12/10/19 17 12/10/2016 CBC w/ auto diff platelet count 330 x10(3 )/uL 144-40 0 Not Available [facility] ([facility]) [address], [place], [address], 12/10/2016 04:28:50 12/10/1912/10/2016 CBC w/ auto diff MPV 8.4 fL 8.2-11 .9 Not Available [facility] ([facility]) [address], [place], [address], 12/10/2016 04:28:50 12/10/19 17 12/10/2016 CMP, serum or plasm a total protein 7.5 g/dL 5.9-8. 4 Not Available [facility] ([facility]) [address], [place], [address], 12/10/2016 04:28:51 12/10/1912/10/2016 CMP, serum or plasm a albumin 4.3 g/dL 3.5-5. 2 Not Available [facility] ([facility]) [address], [place], [address], 12/10/2016 04:28:51 12/10/1912/10/2016 CMP, serum or plasm a globulin 3.2 g/dL 1.7-3. 7 Not Available [facility] ([facility]) [address], [place], [address], 12/10/2016 04:28:51 12/10/19 17 12/10/2016 CMP, serum or plasm a A/G ratio 1.3 1.1-2. 9 Not Available [facility] ([facility]) [address], [place], [address], 12/10/2016 04:28:51 12/10/19 17 12/10/2016 CMP, serum or plasm a sodium 141 mmol/ L 135-14 7 Not Available [facility] ([facility]) [address], [place], [address], 12/10/2016 04:28:51 12/10/19 17 12/10/2016 CMP, serum or plasm a potassium 3.8 mmol/ L 3.5-5. 5 Not Available [facility] ([facility]) [address], [place], [address], 12/10/2016 04:28:51 12/10/19 17 12/10/2016 CMP, serum or plasm a chloride 98 mmol/ L 96-108 Not Available [facility] ([facility]) [address], [place], [address], 12/10/2016 04:28:51 12/10/19 17 12/10/2016 CMP, serum or plasm a CO2 27 mmol/ L 22-29 Not Available [facility] ([facility]) [address], [place], [address], 12/10/2016 04:28:51 12/10/1912/10/2016 CMP, serum or plasm a BUN 11 mg/dL 6-20 Not Available [facility] ([facility]) [address], [place], [address], 12/10/2016 04:28:51 12/10/19 17 12/10/2016 CMP, serum or plasm a creatinine 0.76 mg/dL 0.60-1 .10 Not Available [facility] ([facility]) [address], [place], [address], 12/10/2016 04:28:51 12/10/19 17 12/10/2016 CMP, serum or plasm a E-GFR 101 mL/mi n >or=60 Not Available [facility] ([facility]) [address], [place], [address], 12/10/2016 04:28:51 12/10/19 17 12/10/2016 CMP, serum or plasm a E-GFR, 117 mL/mi n >or=60 Not Available [facility] ([facility]) [address], [place], [address], 12/10/2016 04:28:51 12/10/1912/10/2016 CMP, serum or plasm a BUN/creat ratio 14.5 10.0-2 8.0 Not Available [facility] ([facility]) [address], [place], [address], 12/10/2016 04:28:51 12/10/1912/10/2016 CMP, serum or plasm a calcium 9.5 mg/dL 8.6-10 .4 Not Available [facility] ([facility]) [address], [place], [address], 12/10/2016 04:28:51 12/10/1912/10/2016 CMP, serum or plasm a bilirubin, total 0.2 mg/dL <1.2 Not Available [facility] ([facility]) [address], [place], [address], 12/10/2016 04:28:51 12/10/19 17 12/10/2016 CMP, serum or plasm a alk phos 95 U/L 40-156 Not Available [facility] ([facility]) [address], [place], [address], 12/10/2016 04:28:51 12/10/19 17 12/10/2016 CMP, serum or plasm a AST 157 U/L <32 high Not Available [facility] ([employer]) [address], [place], [address], 12/10/2016 04:28:51 12/10/19 17 12/10/2016 CMP, serum or plasm a ALT 234 U/L <33 high Not Available [facility] ([employer]) [address], [place], [address], 12/10/2016 04:28:51 12/10/19 17 12/10/2016 CMP, serum or plasm a glucose 112 mg/dL 70-99 high Not Available [facility] ([facility] [employer]) [address], [place], [address], 12/10/2016 04:28:51 12/10/19 17 12/10/2016 TSH, serum or plasm a TSH w/rfx to free T4 1.150 uIU/m L 0.178- 4.530 Not Available [facility] ([employer]) [address], [place], [address], 12/10/2016 04:28:51 01/09/2001/09/2017 drug scree n, urine amphetamines Positi ve NG/mL <1000 abnormal Amphe tamin es Quant >2000 ng/mL . Not Available [facility] ([employer]) [address], [place], [address], 01/09/2017 06:33:24 05/04/01/09/2017 drug scree n, urine barbiturates Negati ve NG/mL <200 normal Not Available [facility] ([facility]) [address], [place], [address], 01/09/2017 06:33:24 01/09/20 17 01/09/2017 drug scree n, urine THC Negati ve NG/mL <100 normal Not Available [facility] ([facility]) [address], [place], [address], 01/09/2017 06:33:24 01/09/20 17 01/09/2017 drug scree n, urine cocaine Negati ve NG/mL <300 normal Not Available [facility] ([facility]) [address], [place], [address], 01/09/2017 06:33:24 01/09/20 17 01/09/2017 drug scree n, urine benzodiazepi fabrizio Negati ve NG/mL <200 normal Not Available [facility] ([facility]) [address], [place], [address], 01/09/2017 06:33:24 01/09/20 17 01/09/2017 drug scree n, urine methadone Negati ve NG/mL <300 normal Not Available [facility] ([facility]) [address], [place], [address], 01/09/2017 06:33:24 01/09/20 17 01/09/2017 drug scree n, urine opiates Negati ve NG/mL <300 normal Not Available [facility] ([facility]) [address], [place], [address], 01/09/2017 06:33:24 01/09/20 17 01/09/2017 drug scree n, urine phencyclidin e(pcp) Negati ve NG/mL <25 normal Not Available [facility] ([facility]) [address], [place], [address], 01/09/2017 06:33:24 01/09/20 17 01/09/2017 drug scree n, urine creatinine 233.4 mg/dL >19.9 This urine speci men submi tted as a non-c lisa- of-cu stody was scree kayode by enzym e immun oassa y (EIA) . Resul ts shoul d be used for clini jorge luis evalu ation only. Many drug class es, notab ly amphe tamin es, opiat es, benzo diaze pines and PCP may repor t as posit naun due to cross -reac tivit y with certa in OTC, herba l, or presc ripti on medic ation s. Confi rmati on testi ng is recom katie d for any posit naun EIA resul t. Not Available [facility] ([facility]) [address], [place], [address], 01/09/2017 06:33:24 02/06/20 17 02/13/2017 test autho rizat ion test name: DRUG ABUSE PANEL 10-50 Not Available [facility] [address], [address], 02/13/2017 14:58:57 02/06/2002/13/2017 test autho rizat ion test code: 55608A B Not Available [facility] [address], [address], 02/13/2017 14:58:57 02/06/20 17 02/13/2017 test autho rizat ion client contact: ANILA RABAGO Not Available [facility] [address], [address], 02/13/2017 14:58:57 02/06/20 17 02/13/2017 test autho rizat ion report always message signature The labor atory testi ng on this patie nt was verba lly reque sted or confi rmed by the order ing physi curtis or his or her autho rized repre senta tive after conta ct with an emplo santiago of [facility] [employer] [facility] [facility]. Ary al regul ation s requi re that we maint ain on file writt en autho rizat ion for all labor atory testi ng. Accor dingl y we are askin g that the order ing physi curtis or his or her autho rized repre senta tive sign a copy of this repor t and promp tly retur n it to the clien t servi ce repre senta tive. Signa ture: __ Not Available [facility] [place] [facility] [address] [place], [place], [address], 02/13/2017 14:58:57 02/06/20 17 02/13/2017 test autho rizat ion comment Adan gauthier fax this dylan d form to [phone]. Adan gauthier do not attem pt to retur n this docum ent by other metho ds. Docum ents will not be viewe d by a repre senta tive. Adan gauthier do not use this fax numbe r for other servi ce reque sts. Not Available [facility] [address] [place], [place], [address], 02/13/2017 14:58:57 02/06/20 17 02/13/2017 drug scree n, urine please note: * These resul ts are for medic al treat ment only. * * Rain sis was perfo rmed as non-f orens ic testi ng. * Not Available [facility] [place] [facility] [address], [place], [address], 02/13/2017 14:58:57 02/06/20 17 02/13/2017 drug scree n, urine amphetamines (1000 NG/mL screen) POSITI VE abnormal Not Available [facility] [place] [facility] [address], [place], [address], 02/13/2017 14:58:57 02/06/20 17 02/13/2017 drug scree n, urine amphetamine POSITI VE abnormal Not Available [facility] [place] [facility] [address], [place], [address], 02/13/2017 14:58:57 02/06/20 17 02/13/2017 drug scree n, urine methamphetam ine NEGATI VE CONFIR MED normal Not Available [facility] [place] [facility] [address], [place], [address], 02/13/2017 14:58:57 02/06/20 17 02/13/2017 drug scree n, urine barbiturates NEGATI VE normal Not Available [facility] [place] [facility] [address], [place], [address], 02/13/2017 14:58:57 02/06/20 17 02/13/2017 drug scree n, urine benzodiazepi fabrizio NEGATI VE normal Not Available [facility] [place] [facility] [address], [place], [address], 02/13/2017 14:58:57 02/06/20 17 02/13/2017 drug scree n, urine cocaine metabolites NEGATI VE normal Not Available [facility] [place] [facility] [address], [place], [address], 02/13/2017 14:58:57 02/06/20 17 02/13/2017 drug scree n, urine marijuana metabolites (50 NG/mL screen) NEGATI VE normal Not Available [facility] [place] [facility] [address], [place], [address], 02/13/2017 14:58:57 02/06/20 17 02/13/2017 drug scree n, urine methadone NEGATI VE normal Not Available [facility] [place] [facility] [address], [place], [address], 02/13/2017 14:58:57 02/06/20 17 02/13/2017 drug scree n, urine methaqualone NEGATI VE normal Not Available [facility] [place] [facility] [address], [place], [address], 02/13/2017 14:58:57 02/06/20 17 02/13/2017 drug scree n, urine opiates NEGATI VE normal Not Available [facility] [place] [facility] [address], [place], [address], 02/13/2017 14:58:57 02/06/20 17 02/13/2017 drug scree n, urine phencyclidin e NEGATI VE normal Not Available [facility] [place] [facility] [address], [place], [address], 02/13/2017 14:58:57 02/06/20 17 02/13/2017 drug scree n, urine propoxyphene NEGATI VE normal Not Available [facility] [place] [facility] [address], [place], [address], 02/13/2017 14:58:57 02/06/20 17 02/13/2017 drug scree n, urine comment THE SUBMI TTED URINE SPECI MEN WAS TESTE D AT THE LISTE D CUTOF F LEVEL S AND CONFI RMED BY Shawn Reyes CHEMI JORGE LUIS METHO D. DRUG CLASS INITI AL CUTOF F LEVEL AMPHE TAMIN ES 1000 ng/mL AMBER TURAT ES 300 ng/mL BENZO DIAZE PINES 300 ng/mL COCAI NE METAB OLITE S 300 ng/mL MARIJ UANA METAB OLITE S 50 ng/mL METHA DONE 300 ng/mL METHA QUALO NE 300 ng/mL OPIAT ES 300 ng/mL PHENC YCLID INE 25 ng/mL PROPO XYPHE NE 300 ng/mL Not Available [facility] [address], [place], [address], 02/13/2017 14:58:57 Result Notes None recorded. Problems Name Problem SNOMED Code Status Onset Date Resolution Date Notes Provider Name and Address Organization Details Recorded Time Attention deficit hyperactivity disorder 860730248 Active 2015 Stefani hogan [facility] 6 14:20:59 Posttraumatic stress disorder 67704354 Active 2015 Stefani hogan [facility] 6 14:21:19 Anxiety 29461653 [facility] 14:21:24 Bipolar disorder 30650650 Active 2015 Stefani hogan [facility] 6 14:21:40 Opioid dependence 43690991 Active 2015 [facility] 18:58:10 Problem Notes None recorded. Procedures Surgical History Date Name Laterality Status Provider Name and Address Organization Details Recorded Time 4 Other completed Lilo Gallo NP [address] [place], [address], [facility] 12/09/2016 16:25:24 7 Caesarean Section completed Stefani Romero [facility] 06/25/2016 14:27:48 Imaging Results None recorded. Procedure Notes None recorded. Medical Equipment None Reported. Allergies Allergen ID Allergen Name Allergen Category Reaction Reaction Severity Criticality Documentation Date Start Date Code Code System Note Provider Name and Address Organization Details Recorded Time 530335 peanut allergeni c extract food,medi cation Not available Not available Not available 06/25/2016 18376 8 RxNorm Stefani Romero [facility] 6 14:17:51 479707 Haldol medicatio n Not available Not available Not available 10/08/2016 20959 9 [facility] 15:50[facility]20 Medications Name Sig Start Date Stop Date Status Note LastModified by Organization Details LastModified Time Miralax 17 gram oral powder packet Take 1 packet every day by oral route. 2016 active Not Available Not Available Not Avai lable Adderall 30 mg tablet Take 1 tablet every day by oral route. 2016 active Not Available Not Available Not Avai lable Adderall 15 mg tablet Take 1 tablet every day by oral route. 2016 active Not Available Not Available Not Avai lable clonazepam 0.5 mg tablet Take 1 tablet every day by oral route as needed. 2016 active Not Available Not Available Not Avai lable Trileptal 150 mg tablet take 1/2 tablets twice a day 01/08 completed Not Available Not Available Not Available buprenorphi ne 8 mg-naloxone [address] 1 tablet every day by sublingua l route. active Not Available Not Available No t Available Subutex [address] 1 tablet every day by sublingua l route. 01/27 completed Not Available Not Available Not Available Vitals Date Recorded Body height Body weight Body mass index (BMI) Heart rate Systolic blood pressure Diastolic blood pressure Provider Name and Address Organization Details Last Updated DateTime 7 160.02 cm 44415.7 9 g 23.6 kg/m2 99 /min 107 mm[Hg] 75 mm[Hg] edvin skinner [facility] 7 15:50:34 Date Recorded Body height Body weight Body mass index (BMI) Heart rate Oxygen saturation Oxygen saturation in Arterial blood by Pulse oximetry Respiratory rate Body temperature Systolic blood pressure Diastolic blood pressure Provider Name and Address Organization Details Last Updated DateTime 7 160.02 cm 95436.9 g 20.9 kg/m2 115 /min 96 % 96 % 16 /min 98.4 [degF] 109 mm[Hg] 71 mm[Hg] [facility] 7 11:02:44 Date Recorded Body height Respiratory rate Body weight Body mass index (BMI) Body temperature Heart rate Oxygen saturation Oxygen saturation in Arterial blood by Pulse oximetry Systolic blood pressure Diastolic blood pressure Provider Name and Address Organization Details Last Updated DateTime 157.48 cm 16 /min 51139.7 1 g 21.2 kg/m2 97.2 [degF] 112 /min 99 % 99 % 121 mm[Hg] 82 mm[Hg] [facility] 7 11:24:43 Date Recorded Body height Body weight Body mass index (BMI) Heart rate Oxygen saturation Oxygen saturation in Arterial blood by Pulse oximetry Respiratory rate Body temperature Systolic blood pressure Diastolic blood pressure Provider Name and Address Organization Details Last Updated DateTime 157.48 cm 48732.7 1 g 21.2 kg/m2 122 /min 100 % 100 % 16 /min 97.9 [degF] 119 mm[Hg] 76 mm[Hg] [facility] 7 09:32:40 Date Recorded Body height Respiratory rate Body mass index (BMI) Body weight Body temperature Heart rate Oxygen saturation Oxygen saturation in Arterial blood by Pulse oximetry Systolic blood pressure Diastolic blood pressure Provider Name and Address Organization Details Last Updated DateTime 157.48 cm 18 /min 22.3 kg/m2 80971.2 7 g 97.2 [degF] 108 /min 97 % 97 % 102 mm[Hg] 74 mm[Hg] [facility] 7 13:34:55 Social History Question Answer Notes LastModified by Organizat ion Details LastModified Time Tobacco Smoking Status Current [facility]2016 14:25:25 What Is Your Level Of Alcohol Consumption? None Information not available 06/25/2016 What Is Your Level Of Caffeine Consumption? Occasional Information not available 06/25/2016 What Type Of Diet Are You Following? 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 No Information not available 06/25/2016 Live Alone Or With Others? With Others Information not available 06/25/2016 Sunscreen Used Routinely Yes Information not available 06/25/2016 Td 2010 Information no t available 06/25/2016 PAP December 2015 Normal Information not available 06/25/2016 Marital Status Single Information not available 06/25/2016 How Many Children Do You Have? 1 Expecting 2nd Information not available 06/25/2016 Seat Belts Used Routinely Yes Information not available 06/25/2016 Smoke Alarm In Home Yes Information not available 06/25/2016 At What Age Did You Start Smoking Tobacco? 20 Information not available 06/25/2016 How Much Tobacco Do You Smoke? 0.5 PPD Information not available 06/25/2016 How Many Years Have You Smoked Tobacco? 15 Information not available 06/25/2016 Sex: Unknown Functional Status Question Answer Note LastModified by Organization D etails LastModified Time What is your exercise level? Moderate Information not available 06/25/2016 Mental Status None recorded. Family History Relationship Description Onset Age of this Age Resolved Age Notes LastModified by Organization Details LastModified Time Maternal Grandmother Malignant tumor of breast nvaughn Not available 2015 14:23:48 Maternal Aunt Malignant tumor of breast nvaughn Not available 2015 14:23:57 Father Malignant tumor of esophagus nvaughn Not available 2015 14:24:18 Father Malignant tumor of colon in remiss ion nvaughn Not available 06/25/2016 14:24:29 Father Diabetes mellitus nvaughn Not available 2015 14:24:42 Father Benign hypertension nvaughn Not available 14:25:08 Medical History Condition Response High Blood Pressure N Ear or Hearing Problems N Thyroid Problems N Eye Disorders N Kidney Disease/Dialysis N Lung Disease (Emphysema/Asthma/Chronic B ronchitis N Stroke or Paralysis N Heart disease, heart attack, or other ca rdiovascular condition N Blood Disorders/Anemia N Eczema, Hives or other skin conditions N Diabetes (Diet/Insulin/Pill Control) N Urology Problems (Interstitial Cystitis/ Benign Prostate Hypertrophy (BPH) N Any illness or injury in the last 5 year s N Seizures/Epilepsy N Muscle, Joint, or Bone Problems/Arthriti s/Rheumatological N Serious Illness or Injuries N Hospital Admission in the past year N Cancer N Headaches/Brain Injuries or Disorders N Chronic Pain N Heart Surgery (Valve/Bypass/Angioplasty) N Allergies N Psychiatric Disorder/Depression/Anxiety/ Insomnia Y other N Loss or Altered Consciousness N Gynecological N Abdominal/Digestive N High Cholesterol N Liver Disease N Low Back Pain N Gynecological HistoryNo gynecological history recorded. Obstetrics History GPAL:G 0 P 0 0 0 0 Immunizations Vaccine Type Date Status Note Provider Nam e and Address Organization Details Recorded Time tetanus toxoid, unspecified formulation 09/07/2010 completed Stefani hogan, [facility] 06/25/2016 14:30:11 Tdap 09/07/2013 completed Lilo Gallo NP [address] [place], [address] 01/08/2017 11:26:22 Past Encounters Encounter ID Performer Location Encounter Start Date Encounter Closed Date Diagnosis/Indication Diagnosis SNOMED-CT Code Diagnosis ICD10 Code Diagnosis Note [id number] Wendie Bray/[facility] [address] [place] [phone] 06/25/2016 13:58:54 06/25/2016 15:16:36 Attention deficit hyperactivity disorder 398757585 F90.9 Chronic. Cont Vyvanse. Follow-up with Psych tomorrow to discuss changes Bipolar disorder 3799445 4 F31.9 Chronic. Cont Trileptal and Psych/coun seling Opioid dependence 942419 00 F11.20 Chronic, continue Subutex. F/U with clinic [id number] [facility] [address] [place] [phone] 7 10/08/2016 15:28:39 10/08/2016 16:13:06 Attention deficit hyperactivity disorder 764541753 F90.9 StableRx given for Adderall (given by NIGHAT Gan) until seen by psych 10/15 Anxiety 10317232 F41.9 Rx given for Clonazepam by Lopez Gan f/u w/psych 2/8 Opioid dependence 433828 00 F11.20 StableCont subutex [id number] [facility] [address] [place] [id number] 7 12/09/2016 15:22:33 12/09/2016 18:15:43 Adult health examination 159436725 Z00.00 Exam unremarkab le except where notedCheck labsRx given to continue w/Miralax Attention deficit hyperactivity disorder 582378815 F90.9 Not stableIncr ease Adderall to 30 mg in am, 15 mg in pmKeep f/u w/psych Anxiety 64698383 F41.9 Rx given for Clonazepam Keep f/u w/psych [id number] [facility] [address] [place] [address] [phone] 7 01/08/2017 10:39:02 01/08/2017 11:30:53 Attention deficit hyperactivity disorder 390179303 F90.9 StableCont Adderall 30 mg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
--- OUTSIDE RECORDS SUMMARY | 2024-10-14 17:44 | XMS_ITS | Encounter Summary ---
Author Organization [facility] Address [address] [place] [address] Care Team Providers Care University Counselor Name Role Phone Ambar Patten MD Primary Care Provider Encounter Details Date Type Department Care Team (Late st Contact Info) Description 11/24/2022 Interim Notes [address] [phone] Ambar Patten MD [address] [place] [id number] Social History Tobacco Use Types Packs/Day Years [...] 0 10/23/2022 Safety and Environment Answer Date Sturat rded Safety 0 11/23/2019 Utilities Answer Date [...] Description 10/24/2024 10:30 AM EST Telemedicine Visit [facility] [address] [place] [address] Iveth Acevedo, RN [address] [place] [address] 02/17/2025 12:00 PM EDT Office Visit [facility] [address] [place] [address] Elvia Mai NP [address] [place] [address] documented as of this encounter Procedures Procedure Name Priority Date/Time Associated Diagnosis Comments COMPREHENSIVE METABOLIC PANEL Routine 11/23/2022 documented in this encounter Results * COMPREHENSIVE METABOLIC PANEL (11/23/2022) eGFR NOT 100.3 >=60 mL/min/1.7 3m2 [facility] AST 25 15 - 41 U/L [facility] ALT 24 14 - 54 U/L [facility] Blood Blood / Unknown 11/23/2022 us Provider [facility] - BLOOD DRAW Final Result [facility] [address] [place], [place] [address] [phone] documented in this encounter Visit Diagnoses Not on filedocumented in this encounter Additional Health Concerns Assessment Noted Time PHQ-9 Depression Total Score: 0 11/13/19 23 8:00 AM PST documented as of this encounter Care Teams University Counselor Relationship Specialty Start Date End Date Ambar Patten MD [address] [place] [phone] PCP - General 07/07/22 documented as of this encounter
--- OUTSIDE RECORDS SUMMARY | 2024-10-14 17:44 | XMS_ITS | Clinical Summary ---
Author Organization [facility] Address [address] [place] [address] Care Team Providers Care Transport Driver Name Role Phone Oj Hi MD Unavailable Oumar Gamez MD Primary Care Provider [phone] Allergies Active Allergy Reactions Criticality Noted Date Comments Haloperidol Anaphylaxis High 01/09/2017 Medications amphetamine-dextroa mphetamine (ADDERALL) 20 MG tablet Take 1.5 tablets (30 mg total) by mouth 2 (two) times a day Active buprenorphine-nalox one (SUBOXONE) 8-2 MG per sublingual tablet Place 1 tablet under the tongue 2 (two) times a day Active clonazePAM (KlonoPIN) 1 MG tabletIndications:B enzodiazepine withdrawal without complication (HCC) Take 1 tablet (1 mg total) by mouth daily for 3 days 3 tablet 5 Active ondansetron (ZOFRAN-ODT) 4 MG disintegrating tablet Dissolve 1 tablet (4 mg total) in mouth every 8 (eight) hours as needed for nausea or vomiting for up to 4 days 12 tablet 5 Active clonazePAM (KLONOPIN) 1 MG tablet Take 1 tablet (1 mg total) by mouth daily as needed Active buprenorphine-nalox one (SUBOXONE) 2-0.5 MG per sublingual tablet Place 2 tablets under the tongue daily Active cephalexin (KEFLEX) 500 MG capsule Take 1 capsule (500 mg total) by mouth every 6 (six) hours for 7 days 28 capsule 10/21/19 Active Active Problems Problem Noted Date Diagnosed Date Suicidal ideations 09/11/2024 Suicidal ideation 03/28/2022 Right arm cellulitis 02/13/2018 Encounters Date Type Department Care Team Description 10/13/2024 6:41 AM EST - 10/14/2024 3:[address] [id number] Marcos Licea MD Banna, Diandra, PA-C Thomas, Zoe, PA Suicidal ideation (Primary Dx); UTI (urinary tract infection) Discharge Disposition: Psychiatric Hospital [facility] than [facility] 10/13/2024 Travel 09/11/2024 6:00 PM EST - 09/12/2024 2:[address] [id number] Iveth Sanchez PA-C Miller, Marisa V, PA-C Suicidal ideations Discharge Disposition: Home or Self Care 09/11/2024 Travel 09/07/2024 11:44 PM EST - 09/08/2024 12:[address] [id number] Isabell Pérez MD Benzodiazepine withdrawal without complication (HCC) (Primary Dx) Discharge Disposition: Home or Self Care from Last 3 Months Family History Medical History Relation Name Comments No Known Problems Brother No Known Problems Father No Known Problems Mother Relation Name Status Comments Brother Alive Father Alive Mother Alive Social History Tobacco Use Types Packs/Day Years Used Date Smoking Tobacco: Every Day Cigarettes Smokeless Tobacco: Never Tobacco Cessation:Ready to Q uit: Not Asked; Counseling Given: Not Answered Alcohol Use Standard Drinks/Week Comments No 0 (1 standard drink = 0.6 oz pur e alcohol) Comments No Sex and Gender Information Value Date Recorded Sex Assigned at Female 10/01/2023 4:37 PM EST Legal Sex Female 1:21 PM EDT Gender Identity Female 10/01/2023 4:37 PM EST Sexual Orientation Straight 09/07/2024 11 :19 PM EST Last Filed Vital Signs Vital Sign Reading [...] Mass Index 19.49 10/13/2024 7:08 AM EST Plan of Treatment Health Maintenance Due Date Last Done Comments Annual Physical 1983 Pneumococcal Vaccines 0-64 y rs (includes High Risk) (1 of 2 - PCV) 1986 Hepatitis B Screening 1998 Breast Cancer Screening 2020 DTaP,Tdap,and Td Vaccines (2 - Td or Tdap) 09/07/2023 09/07/2013 COVID-19 Vaccine (2 - 2023-2 5 season) 2024 05/24/2021 Influenza Vaccine (#1) 2024 HIB Vaccines Aged Out No longer eligi ble based on patient's age to complete this topic Hepatitis A Vaccine Aged Out No longe r eligible based on patient's age to complete this topic Procedures Procedure Name Priority Date/Time Associated Diagnosis Comments ECG 12-LEAD STAT 10/14/2024 12:23 PM EST URINE MICROSCOPIC (SEDIMENT ONLY) STAT 10/14/2024 12:21 PM EST URINALYSIS, REFLEX TO CULTURE STAT 10/14/2024 12:21 PM EST TOXICOLOGY SCREEN, URINE ([facility] - OXY/BUP/FENT) STAT 10/13/2024 6:50 PM EST TOXICOLOGY SCREEN, URINE (NON FCU) STAT 10/13/2024 6:50 PM EST TOXICOLOGY SCREEN, URINE STAT 10/13/2024 6:50 PM EST LIGHT BLUE TOP Routine 10/13/2024 7:13 AM EST RED TOP Routine 10/13/2024 7:13 AM EST EXTRA TUBES Routine 10/13/2024 7:13 AM EST COMPREHENSIVE METABOLIC PANEL STAT 10/13/2024 7:03 AM EST CBC AND AUTO DIFFERENTIAL STAT 10/13/2024 7:03 AM EST ETHANOL STAT 10/13/2024 7:03 AM EST TOXICOLOGY SCREEN, URINE ([facility] - OXY/BUP/FENT) STAT 09/11/2024 6:19 PM EST TOXICOLOGY SCREEN, URINE (NON FCU) STAT 09/11/2024 6:19 PM EST TOXICOLOGY SCREEN, URINE STAT 09/11/2024 6:19 PM EST LIGHT BLUE TOP Routine 09/11/2024 6:11 PM EST RED TOP Routine 09/11/2024 6:11 PM EST HCG QUALITATIVE SERUM STAT 09/11/2024 6:11 PM EST EXTRA TUBES Routine 09/11/2024 6:11 PM EST ACETAMINOPHEN LEVEL STAT 09/11/2024 6 :11 PM EST SALICYLATE LEVEL STAT 09/11/2024 6:11 PM EST ETHANOL STAT 09/11/2024 6:11 PM EST LIPASE STAT 09/11/2024 6:11 PM EST COMPREHENSIVE METABOLIC PANEL STAT 09/11/2024 6:11 PM EST CBC AND AUTO DIFFERENTIAL STAT 09/11/2024 6:11 PM EST from Last 3 Months Results * ECG 12-LEAD (10/14/2024 12:23 PM [...] 0 - 2 HPF 10/14/2024 12:38 PM [facility] WBC Clumps >30(A) 0 - 1 HPF 10/14/2024 12:38 PM [facility] RBC 21-30(A) 0-2 HPF HPF 10/14/2024 12:38 PM [facility] Squam Epithelial Many(A) Few HPF 10/14/2024 12:38 PM [facility] Non-Squamous Epithelil Few(A) None Seen HPF 10/14/2024 12:38 PM [facility] Mucus Many(A) Few HPF 10/14/2024 12:38 PM [facility] Bacteria Moderate(A ) None Seen HPF 10/14/2024 12:38 PM [facility] Hyaline Casts UA 11-20(A) 0 - 2 LPF 10/14/2024 12:38 PM [facility] Urine Urine specimen obtained by clean catch procedure / Unknown Collection / Unknown 10/14/2024 12:21 PM EST 10/14/2024 12:23 PM EST Mansi DISLA URINE ORDERABLES Final Result [facility] [address] [place] [phone] * (ABNORMAL) Urinalysis, Reflex to Culture (10/14/2024 12:21 PM EST) Color Light-Orang e(A) Colorless, Yellow, Light-Yello w, Dark-Yellow 10/14/2024 12:34 PM [facility] Clarity, UA Extra Turbid(A) Clear 10/14/2024 12:34 PM [facility] Specific [place] 1.025 1.000 - 1.030 10/14/2024 12:34 PM [facility] pH 6.5 5.0 - 8.0 10/14/2024 12:34 PM [facility] Protein 50(A) Negative, 10 , 20 , 30 mg/dL 10/14/2024 12:34 PM [facility] Glucose Normal Normal, 30 , 50 mg/dL 10/14/2024 12:34 PM [facility] Ketones Negative Negative, Trace mg/dL 10/14/2024 12:34 PM [facility] Blood 0.1(A) Negative, 0.03 mg/dL 10/14/2024 12:34 PM [facility] Bilirubin UA Negative Negative mg/dL 10/14/2024 12:34 PM [facility] Urobilinogen Normal Normal mg/dL 10/14/2024 12:34 PM [facility] Nitrite Negative Negative 10/14/2024 12:34 PM [facility] Leukocyte Esterase 500(A) Negative, 25 Teresa/uL 10/14/2024 12:34 PM [facility] Urine Urine specimen obtained by clean catch procedure / Unknown Collection / Unknown 10/14/2024 12:21 PM EST 10/14/2024 12:23 PM [facility] - 10/14/2024 12:34 PM EST A urine culture is being performed on this specimen due to established reflex criteria Mansi DISLA URINE ORDERABLES Final Result [facility] [address] [place] [address] * (ABNORMAL) Toxicology screen, urine (10/13/2024 6:50 PM EST) Only the most recent of2 resultswithin the time period is included. [facility] Oxycodone Qualitative Urine None Detected None Detected 10/13/2024 10:27 PM EST [facility] Buprenorphine Qualitative Urine Detected(A) None Detected 10/13/2024 10:27 PM EST [facility] Fentanyl Qualitative, Ur None Detected None Detected 10/13/2024 10:27 PM [facility] Urine 10/13/2024 6:50 PM EST 10/13/2024 7:59 PM EST us Marcos Licea MD URINE ORDERABLES Final Result Performing Organization Address [facility]/ZIP Co de Phone Number [facility] [address] [place] [address] * (ABNORMAL) Toxicology screen, urine (10/13/2024 6:50 PM EST) Only the most recent of2 resultswithin the time period is included. [facility] Amphetamine Qualitative, Ur Detected(A) None Detected 10/13/2024 8:00 PM [facility] Barbiturates Qualitative, Ur None Detected None Detected 10/13/2024 8:00 PM [facility] Benzodiazepines Qualitative, Ur Detected(A) None Detected 10/13/2024 8:00 PM [facility] Methadone Qualitative, Ur None Detected None Detected 10/13/2024 8:00 PM [facility] Opiates Qualitative, Ur None Detected None Detected 10/13/2024 8:00 PM [facility] Cannabinoids Qualitative, Ur None Detected None Detected 10/13/2024 8:00 PM [facility] Cocaine Qualitative, Ur None Detected None Detected 10/13/2024 8:00 PM [facility] Creatinine, Urine 184.0 29.0 - 226.0 mg/dL 10/13/2024 8:00 PM [facility] Urine 10/13/2024 6:50 PM EST 10/13/2024 6:50 PM EST Narrative [facility] - 10/13/2024 8:00 PM EST This [...] in context of the patient's clinical condition. us Marcos Licea MD URINE ORDERABLES Final Result Performing Organization Address City/[facility]/ZIP Co de Phone Number [address] [address] * Red Top (10/13/2024 7:13 AM EST) Only the most recent of2 resultswithin the time period is included. Extra Tube Auto resulted. 10/13/2024 11:16 AM EST [facility] Comment:Hold for add-ons. Blood Venipuncture / Unknown 10/13/2024 7:13 AM EST 10/13/2024 7:06 AM EST Triage Protocol Emergency LAB BLOOD ORDERABLE S Final Result Performing Organization Address [facility] Co de Phone Number [address] [address] * Light Blue Top (10/13/2024 7:13 AM EST) Only the most recent of2 resultswithin the time period is included. Extra Tube Auto resulted. 10/13/2024 11:16 AM [facility] Comment:Hold for add-ons. Blood Venipuncture / Unknown 10/13/2024 7:13 AM EST 10/13/2024 7:06 AM EST us Triage Protocol Emergency MD LAB BLOOD ORDERABLE S Final Result [facility] [address] [place] [phone] * (ABNORMAL) CBC and Auto Differential (10/13/2024 7:03 AM EST) Only the most recent of2 resultswithin the time period is included. WBC 9.8 4.8 - 11.2 10*3/??L 10/13/2024 7:12 AM [facility] RBC 4.23 3.60 - 5.40 10*6/??L 10/13/2024 7:12 AM [facility] HGB 13.5 12.0 - 15.8 g/dL 10/13/2024 7:12 AM [facility] HCT 41.0 36.0 - 48.0 % 10/13/2024 7:12 AM [facility] MCV 96.9 82.0 - 98.0 fL 10/13/2024 7:12 AM [facility] MCH 31.9 27.0 - 35.0 pg 10/13/2024 7:12 AM [facility] MCHC 32.9 32.0 - 37.0 g/dL 10/13/2024 7:12 AM [facility] RDW 13.6 12.0 - 15.0 % 10/13/2024 7:12 AM [facility] PLT 289 150 - 400 10*3/??L 10/13/2024 7:12 AM [facility] MPV 6.8(L) 7.0 - 14.0 fL 10/13/2024 7:12 AM [facility] Neut % 59.6 45.0 - 85.0 % 10/13/2024 7:12 AM [facility] Lymph % 30.6 15.0 - 45.0 % 10/13/2024 7:12 AM [facility] Granite % 5.5 0.0 - 12.0 % 10/13/2024 7:12 AM [facility] Eos % 3.6 0.0 - 7.0 % 10/13/2024 7:12 AM [facility] Baso % 0.7 0.0 - 3.0 % 10/13/2024 7:12 AM [facility] NRBC% 0 0 /100 WBC /100 WBC 10/13/2024 7:12 AM [facility] Neut # 5.8 2.2 - 9.5 10*3/??L 10/13/2024 7:12 AM [facility] Lym # 3.0 0.7 - 5.0 10*3/??L 10/13/2024 7:12 AM [facility] Granite # 0.5 0.0 - 1.3 10*3/??L 10/13/2024 7:12 AM [facility] Eos # 0.4 0.0 - 0.4 10*3/??L 10/13/2024 7:12 AM [facility] Baso # 0.1 0.0 - 0.3 10*3/??L 10/13/2024 7:12 AM [facility] Blood Structure of part of right upper limb / Unknown Venipuncture / Unknown 10/13/2024 7:03 AM EST 10/13/2024 7:06 AM EST us Marcos Licea MD LAB BLOOD ORDERABLES Final Res ult [facility] [address] [place] [phone] * Ethanol (10/13/2024 7:03 AM EST) Only the most recent of2 resultswithin the time period is included. Ethanol Lvl 3 <10 mg/dL 10/13/2024 7:26 AM [facility] Blood Structure of part of right upper limb / Unknown Venipuncture / Unknown 10/13/2024 7:03 AM EST 10/13/2024 7:06 AM EST us Marcos Licea MD LAB BLOOD ORDERABLES Final Res ult [facility] [address] [place] [address] * (ABNORMAL) Comprehensive metabolic panel (10/13/2024 7:03 AM EST) Only the most recent of2 resultswithin the time period is included. Sodium 139 136 - 145 mEq/L 10/13/2024 7:25 AM [facility] Potassium 3.8 3.6 - 5.2 mEq/L 10/13/2024 7:25 AM [facility] Chloride 106 98 - 109 mEq/L 10/13/2024 7:25 AM [facility] CO2 26 21 - 32 mEq/L 10/13/2024 7:25 AM [facility] Anion Gap 7 4 - 15 mEq/L 10/13/2024 7:25 AM [facility] Glucose 79 74 - 106 mg/dL 10/13/2024 7:25 AM [facility] Creatinine 0.81 0.58 - 1.02 mg/dL 10/13/2024 7:25 AM [facility] Comment:Reference ranges hav e been changed to reflect new method. eGFR (Female) >60 60 - 115 mL/min 10/13/2024 7:25 AM [facility] BUN 24(H) 7 - 18 mg/dL 10/13/2024 7:25 AM [facility] Calcium 8.7 8.5 - 10.1 mg/dL 10/13/2024 7:25 AM [facility] Total Protein 6.9 6.4 - 8.2 g/dL 10/13/2024 7:25 AM [facility] Albumin 3.7 3.4 - 5.0 g/dL 10/13/2024 7:25 AM [facility] A/G Ratio 1.2 1.0 - 2.3 10/13/2024 7:25 AM [facility] Total Bilirubin 0.4 0.2 - 1.0 mg/dL 10/13/2024 7:25 AM [facility] AST 23 15 - 37 U/L 10/13/2024 7:25 AM [facility] Alkaline Phosphatase 63 46 - 116 IU/L 10/13/2024 7:25 AM [facility] ALT 19 12 - 78 U/L 10/13/2024 7:25 AM [facility] Blood Structure of part of right upper limb / Unknown Venipuncture / Unknown 10/13/2024 7:03 AM EST 10/13/2024 7:06 AM EST Marcos Licea MD LAB BLOOD ORDERABLES Final Res ult Performing Organization Address [facility]/State/ZIP Co de Phone Number [facility] [address] [place] [phone] * hCG, serum, qualitative (09/11/2024 6:11 PM EST) hCG Qual Negative Negative 09/11/2024 7:17 PM [facility] Blood Venipuncture / Unknown 09/11/2024 6:11 PM EST 09/11/2024 6:19 PM EST Iveth L Laura PA-C LAB BLOOD ORDERABLES Pati l Result Performing Organization Address City/[facility]/ZIP Co de Phone Number [facility] [address] [place] [phone] * Lipase (09/11/2024 6:11 PM EST) Lipase 38 16 - 77 U/L 09/11/2024 6:45 PM [facility] Comment:Reference ranges hav e been changed to reflect new method. Blood Venipuncture / Unknown 09/11/2024 6:11 PM EST 09/11/2024 6:19 PM EST Iveth L Laura PA-C LAB BLOOD ORDERABLES Pati l Result [facility] [address] [place] [phone] * (ABNORMAL) Acetaminophen level (09/11/2024 6:11 PM EST) Acetaminophen Level 0(L) 10 - 30 ug/mL 09/11/2024 6:47 PM EST [facility] Blood Venipuncture / Unknown 09/11/2024 6:11 PM EST 09/11/2024 6:19 PM EST Narrative [facility] - 09/11/2024 6:47 PM EST Reference Range has been changed as of 12/21/2019. Iveth L Laura PA-C LAB BLOOD ORDERABLES Pati l Result [facility] [address] [place] [phone] * Salicylate level (09/11/2024 6:11 PM EST) Salicylate 3.0 2.8 - 20.0 mg/dL 09/11/2024 6:47 PM EST [facility] Blood Venipuncture / Unknown 09/11/2024 6:11 PM EST 09/11/2024 6:19 PM EST Iveth L Laura PA-C LAB BLOOD ORDERABLES Pati l Result [facility] [address] [place] [phone] from Last 3 Months Insurance MEDICAID PCP PLAN Advance Directives For more information, please contact: [phone] * Full Code (Latest Code Status on File) Date Activated Date Inactivated Comments 05/26/2020 5:22 PM 05/28/2020 1:13 PM * Full Code Date Activated Date Inactivated Comments 09/15/2019 8:58 PM 09/16/2019 1:16 PM * Full Code Date Activated Date Inactivated Comments 02/13/2018 8:08 PM 02/23/2018 2:44 AM * Full Code Date Activated Date Inactivated Comments 01/11/2018 9:53 PM 02/13/2018 3:53 PM Care Teams Transport Driver Relationship Specialty Start Date End Date Oj Hi MD PCP - Family Medicine 04/07/15 Oumar Gamez MD [address] [place], [place] [address], [place] [address] PCP - General Internal Medicine 05/26/20
[2024-10-14 18:00] VITALS: BP 118/71; PULSE 91; RESP 16; TEMP 36.2; O2SAT 96
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
[2024-10-14 19:22] LABS: Alanine Aminotransferase 13 U/L (0-31); Albumin Level 3.8 g/dL (3.5-5.0); Alkaline Phosphatase 54 U/L (39-117); Anion Gap 12 (12-20); Aspartate Amino Transferase 26 U/L (5-31); Bilirubin Total 0.2 mg/dL (0.0-1.0); Blood Urea Nitrogen 17 mg/dL (9-16); Carbon Dioxide 27 mmol/L (22-29); Chloride 103 mmol/L (96-108); Estimated Glomerular Filt Rate > 60; Glucose Random 95 mg/dL (60-115); Potassium 4.1 mmol/L (3.3-5.1); Sodium 138 mmol/L (135-145); Total Protein 6.7 g/dL (6.5-8.0)
[2024-10-14 19:45] VITALS: BP 123/80; PULSE 99; RESP 16; O2SAT 99
[2024-10-14] MEDS: Buprenorphine/Naloxone 8/2 mg FILM 1 FILM BUCCAL (21:33)
[2024-10-14] MEDS: cephALEXin 500 MG CAPSULE PO (21:33)
--- NOTE | 2024-10-15 08:12 | P.HPPS_ITS ---
HPI Date of Service: 10/15/24 Chief Complaint: MDD Sources of Information: patient interviewed, chart reviewed and crisis/core team assessment reviewed HPI Subjective Notes: Conditional Voluntary Narrative: Nurse admit note 10/14/24: arrived via stretcher with EMS from [facility] in the [place] the [facility]. She is on a 12b. She is alert and oriented x4. Yesika was cooperative with skin and safety check, her skin check was unremarkable. She appears stated age. She is very fidgety and provides fair eye contact with staff. She reports that she presented to the ED because I got stranded at a [place] with no wifi, no wallet, no place to go. I've been couch surfing since [facility] told me I couldnt go back home with my son because I've been missing doctor appointments. They didnt tell me themselves, they made my mom tell me. She has breast cancer I'll never be done chemo because its in my bones , but I am not going to chemo UNTIL they let me go home. She states she felt suicidal earlier but not now , she is able to seek staff if this changes. She is anxious and depressed. She denies any urges to harm others and any visual or perceptual disturbances. She denies any other health issues, but her medical record says she is Hep C+. She is a 1/4ppd smoker, she declines NRT. She denies any substance use, but urine tox was + for amphetamines and benzos. Today: met with patient. Discussed with Nursing. Overall reports having multiple stressors that have led to feeling depressed and suicidal without energy, poor sleep and poor appetite. Reports wanting help with her mental health. Reports not being able to return home since the day before Michael for unclear reasons, While also emphasizing that she has not had any dirty urines and that she missed a DCF appointment because her phone had broken for/ changed. 8-year-old son currently living with mom has custody. Also reports that she has breast cancer which was diagnosed 3 years ago, had a lumpectomy and because she would missed 1 dose of chemotherapy, spread to her bones. Does look physically well however and states she has not attended [facility] for treatment in 4 months due to stressors and housing instability. Reports she has been couch surfing. Adamantly denies any substance use issues in recent times. Openly endorsed overusing benzodiazepines in the past, but none in a number of years. Also issues with opiates in the past, but none in 5 years. On Suboxone through primary care provider. Through [facility] in [place] prescribed Klonopin and Adderall. Reports being on Effexor and Trileptal in the past. Trileptal was helpful. Reports not being on medications for over 8 years . Last inpatient episode was for 5 years ago, after her son's father by overdose and patient was discharged to sober living. Reports suicide attempts by cutting her wrist 10 years ago and by heroin overdose 2 times I a last suicide attempt was over 5 years ago. Past Psychiatric History: reports diagnosis bipolar disorder ADHD. It is difficult to get a clear history of discrete hypomanic or manic episodes. Does state the Trileptal though was helpful in the past. Does have clear depressive episodes. Through [facility] in [place] prescribed Klonopin and Adderall. Reports being on Effexor and Trileptal in the past. Trileptal was helpful. Reports not being on medications for over 8 years . Last inpatient episode was for 5 years ago, after her son's father by overdose and patient was discharged to sober living. Reports suicide attempts by cutting her wrist 10 years ago and by heroin overdose 2 times I a last suicide attempt was over 5 years ago. Medical Evaluation Reviewed: Hospitalist Darci Pending [facility] Medical History (Updated 10/15/24 @ 17:09 by Mitchell Montez MD) Substance use disorder Narrative: Reports that she has breast cancer which was diagnosed 3 years ago, had a lumpectomy and because she would missed 1 dose of chemotherapy, spread to her bones. Does look physically well however and states she has not attended [facility] for treatment in 4 months due to stressors and housing instability. Social History: Reports not being able to return home since the day before Michael for unclear reasons, While also emphasizing that she has not had any dirty urines and that she missed a [facility] appointment because her phone had broken for/ changed. 8-year-old son currently living with mom has custody. Reports she has been couch surfing . 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 Single. No legal issues. She Substance History: Adamantly denies any substance use issues in recent times. Openly endorsed overusing benzodiazepines in the past, but none in a number of years. Also issues with opiates in the past, but none in 5 years. On Suboxone through primary care provider. Diagnostics Vital Signs (24Hr): Vital Signs - 24 hr 10/14/24 18:00 10/14/24 19:45 Temperature 97.2 F Pulse Rate 91 99 Respiratory Rate 16 16 Blood Pressure 118/71 123/80 Pulse Oximetry 96 99 Oxygen Delivery Method Room Air Labs 10/14/24 18:59 Labs: Laboratory Results - last 48 hr 10/14/24 18:59 Sodium 138 Potassium 4.1 Chloride 103 Carbon Dioxide 27 Anion Gap 12 BUN 17 H Creatinine 0.65 Estim Creat Clear Calc TNP Estimated GFR > 60 Random Glucose 95 Calcium 9.0 Total Bilirubin 0.2 AST 26 ALT 13 Alkaline Phosphatase 54 Total Protein 6.7 Albumin 3.8 Meds/Allergies Meds Home Medications ?Medication ?Instructions ?Recorded ?Confirmed ?Type buprenorphine 4 mg-naloxone 1 mg 1 film buccal Q24H 10/14/24 10/14/24 History sublingual film (Suboxone) buprenorphine 8 mg-naloxone 2 mg 1 film buccal BID 10/14/24 10/14/24 History sublingual film (Suboxone) clonazepam 1 mg tablet (Klonopin) 1 mg PO DAILY PRN Anxiety 10/14/24 10/14/24 History dextroamphetamine-amphetamine 30 30 mg PO BID 10/14/24 10/14/24 History mg tablet (Adderall) Allergies Allergies Allergy/AdvReac Type Severity Reaction Status Date / Time haloperidol [From Haldol] AdvReac unknown Verified 10/14/24 18:11 Mental Status Exam Mental Status Exam Narrative: pleasant. Engaged. Casually dressed and well presented. Speech is slightly pressured and tangential in thought form. Denies current SI. Does endorse feeling depressed and overwhelmed and anxious. No agitation or psychosis. Denies hallucinations. Insight and judgment fair Assessment & Plan Assessment & Plan (1) Mood disorder: Status: Acute Code(s): F39 - Unspecified mood [affective] disorder (2) ADHD: Status: Acute Code(s): F90.9 - Attention-deficit hyperactivity disorder, unspecified type (3) Substance use disorder: Status: Acute Code(s): F19.90 - Other psychoactive substance use, unspecified, uncomplicated Plan 44-year-old female presenting with major depressive disorder symptoms, recent suicidal ideation, psychosocial stressors, Unstable housing, DCF involvement, substance use disorder, currently stable and on Suboxone. Tox screen positive for prescribed medications. Diagnostically does present with depressive symptoms and a history of same. No discrete manic or hypomanic episodes, but has responded well to Trileptal in the past. Does have ADHD. Will restart Trileptal as well as home medications which include Adderall and Klonopin and Suboxone- all confirmed via MassPAT/PDMP. Admitted on conditional voluntary status Patient educated on: medication risk/benefits Informed Consent: understands Reason for continued inpatient stay Substantial Risk for: harm to self and rapid decompensation Statement Statement: I have reviewed the history and physical and performed a pertinent examination on my patient. No changes have occurred unless specified. If the History and Physical was not performed prior to admission, the Hospitalist's service will be consulted for completing the admission physical. Time Spent With Patient Time: Total time managing care of this patient today ____ minutes.
[2024-10-15 08:38] VITALS: BP 104/57; PULSE 84; RESP 18; TEMP 37.1; O2SAT 98
[2024-10-15] MEDS: cephALEXin 500 MG CAPSULE PO ×4 (08:49→20:30)
[2024-10-15] MEDS: Amphetamine Mixed Salts 10 MG TABLET 30 MG PO ×2 (08:49→13:00)
[2024-10-15] MEDS: Buprenorphine/Naloxone 8/2 mg FILM 1 FILM BUCCAL ×2 (08:49→20:30)
[2024-10-15 08:57] LABS: Estimated Average Glucose 105 mg/dL; Hemoglobin A1C 122.3348 umol/L; Hemoglobin A1c % 5.3 % (<6.0); Total Hemoglobin (HGBA1C) 3558.5309 umol/L
[2024-10-15] MEDS: clonazePAM 1 MG TABLET PO (09:07)
[2024-10-15] MEDS: Flu Vacc TS2024-25(6mos up)/PF 0.5 ML SYRINGE IM (09:07)
[2024-10-15 09:08] LABS: Cholesterol 163 mg/dL (<200); HDL Cholesterol 65 mg/dL (>40); LDL Cholesterol Calculated 85 mg/dL (<100); Triglycerides 66 mg/dL (<150)
[2024-10-15] MEDS: OXcarbazepine 150 MG TABLET PO ×2 (13:00→20:30)
[2024-10-15 19:44] VITALS: BP 94/53; PULSE 89; RESP 16; TEMP 36.7; O2SAT 98
[2024-10-15] MEDS: Buprenorphine/Naloxone 4/1 mg FILM 1 FILM BUCCAL (20:30)
[2024-10-16 07:48] VITALS: BP 93/55; PULSE 78; RESP 18; TEMP 36.9; O2SAT 98
[2024-10-16] MEDS: OXcarbazepine 150 MG TABLET PO ×2 (08:31→21:19)
[2024-10-16] MEDS: Amphetamine Mixed Salts 10 MG TABLET 30 MG PO ×2 (08:31→12:44)
[2024-10-16] MEDS: cephALEXin 500 MG CAPSULE PO ×4 (08:32→21:19)
[2024-10-16] MEDS: Buprenorphine/Naloxone 8/2 mg FILM 1 FILM BUCCAL ×2 (08:32→21:19)
[2024-10-16] MEDS: clonazePAM 1 MG TABLET PO (08:35)
--- NOTE | 2024-10-16 11:18 | P.PNPSI_ITS ---
Subjective Subjective Date of Service: 10/16/24 Reason For Visit: MDD Subjective Notes: Section 12B Interim History: Met with patient. Discussed with Nursing. Overall reports still feeling depressed and anxious, but less so compared to admission. Thankful that Trileptal has been restarted. Did sleep well last night. Is attending groups. Engaging well in the milieu. No active SI. No medication concerns. Medication Compliance: Yes Side effects from medications: No Attending Groups: Yes Review of Systems Acute medical concerns: No Review of Systems Review of Systems Unremarkable Mental Status Exam Mental Status Exam Narrative: Pleasant. Engaged. Casually dressed and well presented. Speech is less pressured today and thought form less tangential. Denies current SI. Does endorse feeling depressed and overwhelmed and anxious, But less so than yesterday. No agitation or psychosis. Denies hallucinations. Insight and judgment fair Diagnostics Vital Signs (24Hr): Vital Signs - 24 hr 10/15/24 19:44 10/16/24 07:48 Temperature 98.1 F 98.4 F Pulse Rate 89 78 Respiratory Rate 16 18 Blood Pressure 94/53 L 93/55 L Pulse Oximetry 98 98 Oxygen Delivery Method Room Air Room Air Labs 10/14/24 18:59 Labs: Laboratory Results - last 48 hr 10/14/24 10/15/24 18:59 08:15 Sodium 138 Potassium 4.1 Chloride 103 Carbon Dioxide 27 Anion Gap 12 BUN 17 H Creatinine 0.65 Estim Creat Clear Calc TNP Estimated GFR > 60 Random Glucose 95 Estimat Average Glucose 105 Hemoglobin A1c % 5.3 Calcium 9.0 Total Bilirubin 0.2 AST 26 ALT 13 Alkaline Phosphatase 54 Total Protein 6.7 Albumin 3.8 Triglycerides 66 Cholesterol 163 LDL Cholesterol, Calc 85 HDL Cholesterol 65 Medications Medications Current Medications Acetaminophen (Acetaminophen 325 Mg Tablet) 650 mg PO Q6H PRN PRN Reason: Headache/Pain Mild Scale (1-3) Al Hydroxide/Mg Hydroxide (Magnesium Hydrox/Alum Hydrox 30 Ml Oral.Susp) 30 ml PO Q6H PRN PRN Reason: Heartburn/Nausea Amphetamine/Dextroamphetamine (Amphetamine Mixed Salts 10 Mg Tablet) 30 mg PO BID@0800,1300 [facility] Last Admin: 10/16/24 08:31 Dose: 30 mg Buprenorphine/Naloxone (Buprenorphine/Naloxone 4/1 Mg Film) 1 film BUCCAL BEDTIME [facility] Last Admin: 10/15/24 20:30 Dose: 1 film Buprenorphine/Naloxone (Buprenorphine/Naloxone 8/2 Mg Film) 1 film BUCCAL BID [facility] Last Admin: 10/16/24 08:32 Dose: 1 film Cephalexin HCl (Cephalexin 500 Mg Capsule) 500 mg PO QID [facility] Stop: 10/21/24 17:01 Last Admin: 10/16/24 08:32 Dose: 500 mg Clonazepam (Clonazepam 1 Mg Tablet) 1 mg PO DAILY PRN PRN Reason: Anxiety Last Admin: 10/16/24 08:35 Dose: 1 mg Hydroxyzine HCl (Hydroxyzine Hcl 25 Mg Tablet) 25 mg PO Q6H PRN PRN Reason: mild anxiety Magnesium Hydroxide (Milk Of Magnesia 30 Ml Oral.Susp) 30 ml PO DAILY PRN PRN Reason: Constipation Nicotine (Nicotine 21 Mg Patch.Td24) 21 mg TRANSDERMA DAILY PRN PRN Reason: smoking cessation Nicotine Polacrilex (Nicotine Polacrilex 2 Mg Gum) 4 mg BUCCAL Q2H PRN PRN Reason: Nicotine Cravings Olanzapine (Olanzapine 5 Mg Tablet) 5 mg PO TID PRN PRN Reason: agitation Oxcarbazepine (Oxcarbazepine 150 Mg Tablet) 150 mg PO BID [facility] Last Admin: 10/16/24 08:31 Dose: 150 mg Trazodone HCl (Trazodone Hcl 50 Mg Tablet) 50 mg PO BEDTIME MRX1 PRN PRN Reason: Insomnia Allergies Allergies Allergy/AdvReac Type Severity Reaction Status Date / Time haloperidol [From Haldol] AdvReac unknown Verified 10/14/24 18:11 Assessment & Plan Assessment & Plan (1) Mood disorder: Status: Acute Code(s): F39 - Unspecified mood [affective] disorder (2) ADHD: Status: Acute Code(s): F90.9 - Attention-deficit hyperactivity disorder, unspecified type (3) Substance use disorder: Status: Acute Code(s): F19.90 - Other psychoactive substance use, unspecified, uncomplicated Plan 44-year-old female presenting with major depressive disorder symptoms, recent suicidal ideation, psychosocial stressors, Unstable housing, DCF involvement, substance use disorder, currently stable and on Suboxone. Tox screen positive for prescribed medications. Diagnostically does present with depressive symptoms and a history of same. No discrete manic or hypomanic episodes, but has responded well to Trileptal in the past. Does have ADHD. Will restart Trileptal as well as home medications which include Adderall and Klonopin and Suboxone- all confirmed via [facility]PAT/PDMP. Admitted on S12 10/16/24: overall no med changes. Restarted Trileptal yesterday. Will meet with primary team tomorrow review legal status and treatment/dispo planning Reason for continued inpatient stay Substantial Risk for: harm to self Time Spent With Patient Time: Total time managing care of this patient today ____ minutes.
--- NOTE | 2024-10-16 15:23 | HO.PM.IMCN ---
History of Present Illness Data of Consult Service Date: 10/16/24 Primary Care Provider: Unknown Physician HPI A 44-year-old female with a history of ADHD, bipolar disorder, and substance use disorder was admitted to the psychiatric unit under Section 12b due to social stressors leading to feelings of depression, suicidal ideation (SI), decreased energy, and poor appetite. She is alert and oriented to person, place, time, and situation, and reports no acute medical concerns at this time. Review of Systems Review of Systems: Gen: no fever Resp: no sob, no cough CV: no chest, no TOSCANO, no leg edema GI: No n/v, no abd pain Neuro: No confusion Psych [facility] Medical History (Updated 10/16/24 @ 15:40 by Willard Herzog MD) Substance use disorder Social History Household Members: None Housing: Homeless Housing Other:: couch surfing Do you presently have visiting nurse or other home services: No Patient Tobacco Use Status: Current everyday Tobacco user Tobacco use type: Cigarette Cigarette Packs Per Day: 0.25 Cigarettes Per Day: 5.0 Smoked in Last 30 Days: Yes Patient Interested in Nicotine Replacement: No Patient Given Instructions on How to Stop Smoking: No Use of substances other than those prescribed or required for medical reasons: No Currently Displaying Signs/Symptoms of Drug Intoxication Withdrawal: No Any prior treatment program specific to substance use: No Have you been hit, kicked, punched, or otherwise hurt by someone within the past year? If so, by whom?: No Do you feel safe in your current relationship?: No Current Relationship Is there a partner from a previous relationship who is making you feel unsafe now?: No Are you made to feel afraid or neglected: No Spiritual Healthcare Practices: none Yazidism Healthcare Practices: none Cultural Healthcare Practices: none Advance Directives: No Advance Directives Information Provided: No Do you have thoughts of harming others: None Do you have a plan to hurt others: No Plan Recently lost weight without trying: Unsure Patient : No : No Poor oral hygiene: No Meds Allergies Allergy/AdvReac Type Severity Reaction Status Date / Time haloperidol [From Haldol] AdvReac unknown Verified 10/14/24 18:11 Active Medications: Current Medications Acetaminophen (Acetaminophen 325 Mg Tablet) 650 mg PO Q6H PRN PRN Reason: Headache/Pain Mild Scale (1-3) Al Hydroxide/Mg Hydroxide (Magnesium Hydrox/Alum Hydrox 30 Ml Oral.Susp) 30 ml PO Q6H PRN PRN Reason: Heartburn/Nausea Amphetamine/Dextroamphetamine (Amphetamine Mixed Salts 10 Mg Tablet) 30 mg PO BID@0800,1300 [facility] Last Admin: 10/16/24 12:44 Dose: 30 mg Buprenorphine/Naloxone (Buprenorphine/Naloxone 4/1 Mg Film) 1 film BUCCAL BEDTIME [facility] Last Admin: 10/15/24 20:30 Dose: 1 film Buprenorphine/Naloxone (Buprenorphine/Naloxone 8/2 Mg Film) 1 film BUCCAL BID [facility] Last Admin: 10/16/24 08:32 Dose: 1 film Cephalexin HCl (Cephalexin 500 Mg Capsule) 500 mg PO QID [facility] Stop: 10/21/24 17:01 Last Admin: 10/16/24 12:44 Dose: 500 mg Clonazepam (Clonazepam 1 Mg Tablet) 1 mg PO DAILY PRN PRN Reason: Anxiety Last Admin: 10/16/24 08:35 Dose: 1 mg Hydroxyzine HCl (Hydroxyzine Hcl 25 Mg Tablet) 25 mg PO Q6H PRN PRN Reason: mild anxiety Magnesium Hydroxide (Milk Of Magnesia 30 Ml Oral.Susp) 30 ml PO DAILY PRN PRN Reason: Constipation Nicotine (Nicotine 21 Mg Patch.Td24) 21 mg TRANSDERMA DAILY PRN PRN Reason: smoking cessation Nicotine Polacrilex (Nicotine Polacrilex 2 Mg Gum) 4 mg BUCCAL Q2H PRN PRN Reason: Nicotine Cravings Olanzapine (Olanzapine 5 Mg Tablet) 5 mg PO TID PRN PRN Reason: agitation Oxcarbazepine (Oxcarbazepine 150 Mg Tablet) 150 mg PO BID [facility] Last Admin: 10/16/24 08:31 Dose: 150 mg Trazodone HCl (Trazodone Hcl 50 Mg Tablet) 50 mg PO BEDTIME MRX1 PRN PRN Reason: Insomnia Home Medications ?Medication ?Instructions ?Recorded ?Confirmed ?Last Taken ?Type buprenorphine 4 mg-naloxone 1 mg 1 film buccal Q24H 10/14/24 10/14/24 10/14/24 History sublingual film (Suboxone) buprenorphine 8 mg-naloxone 2 mg 1 film buccal BID 10/14/24 10/14/24 10/14/24 History sublingual film (Suboxone) clonazepam 1 mg tablet (Klonopin) 1 mg PO DAILY PRN Anxiety 10/14/24 10/14/24 10/14/24 History dextroamphetamine-amphetamine 30 30 mg PO BID 10/14/24 10/14/24 10/14/24 History mg tablet (Adderall) Physical Exam Vital Signs and Narrative: Vital Signs: Last Vital Signs Temp 98.4 F 10/16/24 07:48 Pulse 78 10/16/24 07:48 Resp 18 10/16/24 07:48 BP 93/55 L 10/16/24 07:48 Pulse Ox 98 10/16/24 07:48 O2 Del Method Room Air 10/16/24 07:48 Const: Other: General: AO X 3, no acute distress, thin built Resp: CTA bilateral CVS: S1,S2,RRR GI: +BS, NT, no distention Skin: No rash Neuro: motor grossly intact, NC 2 to 12 intact Psych: appropriate affect , no sI/Hi Results Labs 10/14/24 18:59 Assessment and Plan (1) Mood disorder: Status: Acute (2) ADHD: Status: Acute (3) Substance use disorder: Status: Acute (4) Depression: Status: Acute Plan A 44-year-old female with a history of breast cancer since 2020 s/p lumpectomy and is supposed to be under chemo but not regular with and has spread to bones-per her report, ADHD, bipolar disorder, and substance use disorder was admitted to the psychiatric unit under Section 12b due to social stressors leading to feelings of depression, suicidal ideation (SI), decreased energy, and poor appetite. She is alert and oriented to person, place, time, and situation, and reports no acute medical concerns at this time. Plan: Given no acute medical issues at this time, will deffer management to the Pschiatric team. Advise to follow through with her oncology follow-up upon discharge
[2024-10-16 20:00] VITALS: BP 106/58; PULSE 91; RESP 16; TEMP 36.6; O2SAT 98
[2024-10-16] MEDS: Buprenorphine/Naloxone 4/1 mg FILM 1 FILM BUCCAL (21:19)
[2024-10-17 07:42] VITALS: BP 112/68; PULSE 81; RESP 18; TEMP 36.8; O2SAT 100
[2024-10-17] MEDS: cephALEXin 500 MG CAPSULE PO ×4 (08:34→20:48)
[2024-10-17] MEDS: Buprenorphine/Naloxone 8/2 mg FILM 1 FILM BUCCAL ×2 (08:34→20:48)
[2024-10-17] MEDS: OXcarbazepine 150 MG TABLET PO ×2 (08:34→20:48)
[2024-10-17] MEDS: Amphetamine Mixed Salts 10 MG TABLET 30 MG PO ×2 (08:34→13:02)
--- NOTE | 2024-10-17 10:14 | P.PNPSI_ITS ---
Subjective Subjective Date of Service: 10/17/24 Reason For Visit: MDD Subjective Notes: Section 12B (10/19/24) Interim History: Yesika denies SI,HI,AH,VH She is visable in milieu and reports she is learning from some of the groups she is attending. Anxiety is improved with Trileptal trial Sleep and appetite are intact She awaits feedback from [facility] in regards to how to proceed with treatment to meet their requirements. Medication Compliance: Yes Side effects from medications: No Attending Groups: Yes Review of Systems Acute medical concerns: No Review of Systems Review of Systems Yes all other systems are reviewed and are negative Mental Status Exam Mental Status Exam Patient Appearance: Appropriate Patient Orientation: Person, Place, Time and Situation Level of Consciousness: Alert Patient Behavior: Talkative and Good Eye Contact Mood Description: Anxious and Apprehensive Affect Description: Anxious and Apprehensive Patient Cognition Impaired: No Ability to Follow Directions: Good Speech Pattern: Spontaneous Speech Memory Description: Intact Hallucinations: None Delusions: Not Present Thought Process: Rumination Thought Content: positive for Perseveration and positive for Suicidal Ideation (denies) Judgement: Fair Diagnostics Vital Signs (24Hr): Vital Signs - 24 hr 10/16/24 20:00 10/17/24 07:42 Temperature 97.8 F 98.2 F Pulse Rate 91 81 Respiratory Rate 16 18 Blood Pressure 106/58 L 112/68 Pulse Oximetry 98 100 Oxygen Delivery Method Room Air Room Air Labs 10/14/24 18:59 Medications Medications Current Medications Acetaminophen (Acetaminophen 325 Mg Tablet) 650 mg PO Q6H PRN PRN Reason: Headache/Pain Mild Scale (1-3) Al Hydroxide/Mg Hydroxide (Magnesium Hydrox/Alum Hydrox 30 Ml Oral.Susp) 30 ml PO Q6H PRN PRN Reason: Heartburn/Nausea Amphetamine/Dextroamphetamine (Amphetamine Mixed Salts 10 Mg Tablet) 30 mg PO BID@0800,1300 [facility] Last Admin: 10/17/24 08:34 Dose: 30 mg Buprenorphine/Naloxone (Buprenorphine/Naloxone 4/1 Mg Film) 1 film BUCCAL BEDTIME [facility] Last Admin: 10/16/24 21:19 Dose: 1 film Buprenorphine/Naloxone (Buprenorphine/Naloxone 8/2 Mg Film) 1 film BUCCAL BID [facility] Last Admin: 10/17/24 08:34 Dose: 1 film Cephalexin HCl (Cephalexin 500 Mg Capsule) 500 mg PO QID [facility] Stop: 10/21/24 17:01 Last Admin: 10/17/24 08:34 Dose: 500 mg Clonazepam (Clonazepam 1 Mg Tablet) 1 mg PO DAILY PRN PRN Reason: Anxiety Last Admin: 10/16/24 08:35 Dose: 1 mg Hydroxyzine HCl (Hydroxyzine Hcl 25 Mg Tablet) 25 mg PO Q6H PRN PRN Reason: mild anxiety Magnesium Hydroxide (Milk Of Magnesia 30 Ml Oral.Susp) 30 ml PO DAILY PRN PRN Reason: Constipation Nicotine (Nicotine 21 Mg Patch.Td24) 21 mg TRANSDERMA DAILY PRN PRN Reason: smoking cessation Nicotine Polacrilex (Nicotine Polacrilex 2 Mg Gum) 4 mg BUCCAL Q2H PRN PRN Reason: Nicotine Cravings Olanzapine (Olanzapine 5 Mg Tablet) 5 mg PO TID PRN PRN Reason: agitation Oxcarbazepine (Oxcarbazepine 150 Mg Tablet) 150 mg PO BID [facility] Last Admin: 10/17/24 08:34 Dose: 150 mg Trazodone HCl (Trazodone Hcl 50 Mg Tablet) 50 mg PO BEDTIME MRX1 PRN PRN Reason: Insomnia Allergies Allergies Allergy/AdvReac Type Severity Reaction Status Date / Time haloperidol [From Haldol] AdvReac unknown Verified 10/14/24 18:11 Assessment & Plan Assessment & Plan (1) Mood disorder: Status: Acute Code(s): F39 - Unspecified mood [affective] disorder (2) ADHD: Status: Acute Code(s): F90.9 - Attention-deficit hyperactivity disorder, unspecified type (3) Substance use disorder: Status: Acute Code(s): F19.90 - Other psychoactive substance use, unspecified, uncomplicated Plan 44-year-old female presenting with major depressive disorder symptoms, recent suicidal ideation, psychosocial stressors, Unstable housing, DCF involvement, substance use disorder, currently stable and on Suboxone. Tox screen positive for prescribed medications. Diagnostically does present with depressive symptoms and a history of same. No discrete manic or hypomanic episodes, but has responded well to Trileptal in the past. Does have ADHD. Will restart Trileptal as well as home medications which include Adderall and Klonopin and Suboxone- all confirmed via [facility]PAT/PDMP. Admitted on S12 10/16/24: overall no med changes. Restarted Trileptal yesterday. Will meet with primary team tomorrow review legal status and treatment/dispo planning 10/17/24: continue plan. await DCF input. Reason for continued inpatient stay Substantial Risk for: rapid decompensation Time Spent With Patient Time: Total time managing care of this patient today ____ minutes.
[2024-10-17 20:00] VITALS: BP 123/66; PULSE 102; TEMP 36.9; O2SAT 98
[2024-10-17] MEDS: Buprenorphine/Naloxone 4/1 mg FILM 1 FILM BUCCAL (20:48)
[2024-10-18 08:12] VITALS: BP 109/67; PULSE 90; TEMP 36.9; O2SAT 98
[2024-10-18] MEDS: cephALEXin 500 MG CAPSULE PO ×4 (08:37→20:23)
[2024-10-18] MEDS: Buprenorphine/Naloxone 8/2 mg FILM 1 FILM BUCCAL ×2 (08:37→20:23)
[2024-10-18] MEDS: Amphetamine Mixed Salts 10 MG TABLET 30 MG PO ×2 (08:37→13:25)
[2024-10-18] MEDS: OXcarbazepine 150 MG TABLET PO ×2 (08:37→20:23)
--- NOTE | 2024-10-18 10:11 | HO.PSYCHPN ---
Subjective Subjective Date of Service: 10/18/24 Reason For Visit: MDD Subjective Notes: Section 12B Healthcare Proxy: No Guardianship: No Medical Problems Affecting Mental Status: No Interim History: Preparing for discharge. DCF will not allow pt to return to mother's home. Pt expressed anger with this, My brother and his girlfriend keep setting me up . Discussed moving forward with chemotherapy- they told me it is now in my bones. I have not gone to chemo in 3 months (had been on a 3 week schedule she reports). I am not going back until my family and DCF does what I want them to do. Discussed staying at [facility] [place] [facility] and working more on depression, possibly having an oncology eval. She declined but will keep the offer in mind. Denies SI/HI/AH/VH. No sx of acute love or psychosis. Expressing anger with current situation. Medication Compliance: Yes Side effects from medications: No Attending Groups: Intermittent Review of Systems refusing chemo for three months Mental Status Exam Mental Status Exam Patient Appearance: Appropriate Patient Orientation: Person, Place, Time and Situation Level of Consciousness: Alert Patient Behavior: Talkative and Good Eye Contact Mood Description: Anxious, Angry and Apprehensive Affect Description: Anxious and Apprehensive Patient Cognition Impaired: No Ability to Follow Directions: Good Speech Pattern: Spontaneous Speech Memory Description: Intact Hallucinations: None Delusions: Not Present Thought Process: Rumination Thought Content: positive for Perseveration and positive for Suicidal Ideation (denies) Judgement: Fair Diagnostics Vital Signs (24Hr): Vital Signs - 24 hr 10/17/24 20:00 10/18/24 08:12 Temperature 98.5 F 98.4 F Pulse Rate 102 H 90 Blood Pressure 123/66 109/67 Pulse Oximetry 98 98 Oxygen Delivery Method Room Air Room Air Labs 10/14/24 18:59 Labs: Laboratory Results - last 48 hr 10/14/24 18:59 Sodium 138 Potassium 4.1 Chloride 103 Carbon Dioxide 27 Anion Gap 12 BUN 17 H Creatinine 0.65 Estim Creat Clear Calc TNP Estimated GFR > 60 Random Glucose 95 Calcium 9.0 Total Bilirubin 0.2 AST 26 ALT 13 Alkaline Phosphatase 54 Total Protein 6.7 Albumin 3.8 Medications Medications Current Medications Acetaminophen (Acetaminophen 325 Mg Tablet) 650 mg PO Q6H PRN PRN Reason: pain 1-10 Al Hydroxide/Mg Hydroxide (Magnesium Hydrox/Alum Hydrox 30 Ml Oral.Susp) 30 ml PO Q6H PRN PRN Reason: Heartburn/Nausea Amphetamine/Dextroamphetamine (Amphetamine Mixed Salts 10 Mg Tablet) 30 mg PO BID@0800,1300 [facility] Last Admin: 10/18/24 08:37 Dose: 30 mg Buprenorphine/Naloxone (Buprenorphine/Naloxone 4/1 Mg Film) 1 film BUCCAL BEDTIME [facility] Last Admin: 10/17/24 20:48 Dose: 1 film Buprenorphine/Naloxone (Buprenorphine/Naloxone 8/2 Mg Film) 1 film BUCCAL BID [facility] Last Admin: 10/18/24 08:37 Dose: 1 film Cephalexin HCl (Cephalexin 500 Mg Capsule) 500 mg PO QID [facility] Stop: 10/21/24 17:01 Last Admin: 10/18/24 08:37 Dose: 500 mg Clonazepam (Clonazepam 1 Mg Tablet) 1 mg PO DAILY PRN PRN Reason: Anxiety Last Admin: 10/16/24 08:35 Dose: 1 mg Hydroxyzine HCl (Hydroxyzine Hcl 25 Mg Tablet) 25 mg PO Q6H PRN PRN Reason: mild anxiety Magnesium Hydroxide (Milk Of Magnesia 30 Ml Oral.Susp) 30 ml PO DAILY PRN PRN Reason: Constipation Nicotine (Nicotine 21 Mg Patch.Td24) 21 mg TRANSDERMA DAILY PRN PRN Reason: smoking cessation Nicotine Polacrilex (Nicotine Polacrilex 2 Mg Gum) 4 mg BUCCAL Q2H PRN PRN Reason: Nicotine Cravings Olanzapine (Olanzapine 5 Mg Tablet) 5 mg PO TID PRN PRN Reason: agitation Oxcarbazepine (Oxcarbazepine 150 Mg Tablet) 150 mg PO BID [facility] Last Admin: 10/18/24 08:37 Dose: 150 mg Trazodone HCl (Trazodone Hcl 50 Mg Tablet) 50 mg PO BEDTIME MRX1 PRN PRN Reason: Insomnia Allergies Allergies Allergy/AdvReac Type Severity Reaction Status Date / Time haloperidol [From Haldol] AdvReac unknown Verified 10/14/24 18:11 Assessment & Plan Assessment & Plan (1) Mood disorder: Status: Acute Code(s): F39 - Unspecified mood [affective] disorder (2) ADHD: Status: Acute Code(s): F90.9 - Attention-deficit hyperactivity disorder, unspecified type (3) Substance use disorder: Status: Acute Code(s): F19.90 - Other psychoactive substance use, unspecified, uncomplicated Plan 44-year-old female presenting with major depressive disorder symptoms, recent suicidal ideation, psychosocial stressors, Unstable housing, DCF involvement, substance use disorder, currently stable and on Suboxone. Tox screen positive for prescribed medications. Diagnostically does present with depressive symptoms and a history of same. No discrete manic or hypomanic episodes, but has responded well to Trileptal in the past. Does have ADHD. Will restart Trileptal as well as home medications which include Adderall and Klonopin and Suboxone- all confirmed via [place]/PDMP. Admitted on S12 10/16/24: overall no med changes. Restarted Trileptal yesterday. Will meet with primary team tomorrow review legal status and treatment/dispo planning 10/18/24: DC 10/19. Pt not wanting to continue treatment at this time. Reason for continued inpatient stay Substantial Risk for: rapid decompensation and med/psych decompensation Time Spent With Patient Time: Total time managing care of this patient today ____ minutes.
[2024-10-18] MEDS: clonazePAM 1 MG TABLET PO (16:58)
[2024-10-18 20:00] VITALS: BP 105/66; PULSE 104; TEMP 36.8; O2SAT 99
[2024-10-18] MEDS: Buprenorphine/Naloxone 4/1 mg FILM 1 FILM BUCCAL (20:23)
[2024-10-18] MEDS: traZODone HCL 50 MG TABLET PO (20:32)
[2024-10-19 08:00] VITALS: BP 122/58; PULSE 72; RESP 16; TEMP 36.9; O2SAT 100
[2024-10-19] MEDS: Buprenorphine/Naloxone 8/2 mg FILM 1 FILM BUCCAL (08:34)
[2024-10-19] MEDS: cephALEXin 500 MG CAPSULE PO (08:34)
[2024-10-19] MEDS: OXcarbazepine 150 MG TABLET PO (08:34)
[2024-10-19] MEDS: Amphetamine Mixed Salts 10 MG TABLET 30 MG PO (08:34)
[2024-10-19] MEDS: clonazePAM 1 MG TABLET PO (08:38)
--- NOTE | 2024-10-19 20:50 | PM.PSYDC ---
DS: Providers Provider Date of admission: 10/14/24 17:34 Primary care physician: Unknown Physician Consults: 10/14/24 18:11 Consult to Hospitalist Routine Comment: [place] [facility] Reason For Exam: admission physical DS: Diagnosis Discharge Diagnosis (1) Mood disorder: Status: Acute (2) ADHD: Status: Acute (3) Substance use disorder: Status: Acute DS: Medications Discharge Medications Home Medications: Previous Rx's ?Medication ?Instructions ?Recorded buprenorphine 4 mg-naloxone 1 mg 1 film buccal BEDTIME #2 ea 10/19/24 sublingual film (Suboxone) buprenorphine 8 mg-naloxone 2 mg 1 film buccal BID #4 ea 10/19/24 sublingual film (Suboxone) cephalexin 500 mg capsule 500 mg PO QID #10 caps 10/19/24 clonazepam 1 mg tablet 1 mg PO DAILY PRN Anxiety #7 tabs 10/19/24 dextroamphetamine-amphetamine 30 30 mg PO DAILY #60 tabs 10/19/24 mg tablet (Adderall) naloxone 4 mg/actuation nasal 4 mg intranasal Q2M PRN opioid 10/19/24 spray (Narcan) overdose #2 ea oxcarbazepine 150 mg tablet 150 mg PO BID #60 tabs 10/19/24 trazodone 50 mg tablet 50 mg PO BEDTIME MRX1 PRN Insomnia 10/19/24 #14 tabs Data Data Completed and Pending Completed studies during hospitalization [Text1]: 10/14/24 10/15/24 18:59 08:15 Sodium 138 Potassium 4.1 Chloride 103 Carbon Dioxide 27 Anion Gap 12 BUN 17 H Creatinine 0.65 Estim Creat Clear Calc TNP Estimated GFR > 60 Random Glucose 95 Estimat Average Glucose 105 Hemoglobin A1c % 5.3 Calcium 9.0 Total Bilirubin 0.2 AST 26 ALT 13 Alkaline Phosphatase 54 Total Protein 6.7 Albumin 3.8 Triglycerides 66 Cholesterol 163 LDL Cholesterol, Calc 85 HDL Cholesterol 65 DS: Summary Time Spent with Patient Time attestation: Total time managing care of this patient today ____ minutes. Discharge Plan Discharge Anticipated Discharge Date/Time: 10/19/24 12:00 Patient Disposition: Xfer Other Discharge Diagnosis: Mood Disorder Opiate Use Disorder, Suboxone Therapy Polysubstance use disorder ADHD Breast cancer-chemotherapy noncompliance Referrals: PCP: Dr. Mendenhall ([facility]) [Other] - 10/26/24 12:20 pm (Appointment is in person at the office ) Suboxone: KIRAN Lazaro ([facility]) [Other] - 10/24/24 10:30 am (Prescriber is Elvia Mai but this appointment will be over the phone Suboxone follow up with KIRAN Lazaro ) Psych Prescriber:Eladia Rasheed([facility]) [Other] - 10/26/24 11:00 am (Telehealth ) Discharge Medications: New oxcarbazepine 150 mg Tablet 150 mg PO BID Qty: 60 0RF trazodone 50 mg Tablet 50 mg PO BEDTIME MRX1 PRN (Reason: Insomnia) Qty: 14 0RF clonazepam 1 mg Tablet 1 mg PO DAILY PRN (Reason: Anxiety) Qty: 7 4RF cephalexin 500 mg Capsule 500 mg PO QID Qty: 10 0RF buprenorphine-naloxone [Suboxone] 8-2 mg Film 1 film buccal BID Qty: 4 0RF buprenorphine-naloxone [Suboxone] 4-1 mg Film 1 film buccal BEDTIME Qty: 2 0RF naloxone [Narcan] 4 mg/actuation spray,non-aerosol 4 mg intranasal Q2M PRN (Reason: opioid overdose) Qty: 2 0RF Rx Instructions: spray 1 dose into ONE nostril; alternate nostrils w each dose until help arrives dextroamphetamine-amphetamine [Adderall] 30 mg tablet 30 mg PO DAILY Qty: 60 0RF Rx Instructions: Partial Fill upon patient request. Discontinued clonazepam [Klonopin] 1 mg Tablet 1 mg PO DAILY PRN (Reason: Anxiety) dextroamphetamine-amphetamine [Adderall] 30 mg Tablet 30 mg PO BID Rx Instructions: administer doses at least 4-6 hours apart buprenorphine-naloxone [Suboxone] 8-2 mg Film 1 film BUCCAL BID buprenorphine-naloxone [Suboxone] 4-1 mg Film 1 film BUCCAL Q24H Patient Comments: Last filled 10/11/24 Rx Instructions: place 1 strip/tab under (each) side of tongue Discharge Orders: Discharge Order (Routine); Ordered 10/19/24 Ordered By: aKjal Lyle Diet: Advance to usual diet Activity on Discharge: As tolerated Stand Alone Forms: Patient Portal Discharge page, Community Support Print Language: Greenlandic Care Plan Goals: Abstinence from substances Mood and Behavioral Stabilization Health Concerns: Abstinence from substances Mood and Behavioral Stabilization Plan of Treatment: Attend scheduled appointments Take medications as directed Call/Return as needed Assessment: Bebeto HERNÁNDEZ,HI,AH,VH Pt was invited [place] [facility] [place], she declined No sx of acute psychosis or love Discharge Date/Time: 10/19/24 11:03
== END 2024-10-19 11:03 | disposition other institution (70) | DRG 753 ==
PROVIDERS: Psychiatry & Neurology Psychiatry; Admitting Provider Psychiatry & Neurology Psychiatry; Visit Provider Clinical Nurse Specialist Psychiatric/Mental Health, Adult
DX: F39 Unspecified mood [affective] disorder (principal); R45.851 Suicidal ideations; C50.919 Malignant neoplasm of unspecified site of unspecified female breast; F17.210 Nicotine dependence, cigarettes, uncomplicated; F11.20 Opioid dependence, uncomplicated; F90.9 Attention-deficit hyperactivity disorder, unspecified type; F19.90 Other psychoactive substance use, unspecified, uncomplicated; Z23 Encounter for immunization; Z91.199 Patient's noncompliance with other medical treatment and regimen due to unspecified reason; Z71.6 Tobacco abuse counseling; Z79.899 Other long term (current) drug therapy
CPT/HCPCS: 36415; 80053; 80061; 83036; 90656

== ENCOUNTER → 2024-10-14 17:34 | Outpatient (BNV) | payer OTHER, SELFPAY | PROVIDERS: Admitting Provider Psychiatry & Neurology Psychiatry; Visit Provider Psychiatry & Neurology Psychiatry | DX: F39 Unspecified mood [affective] disorder (principal); F90.9 Attention-deficit hyperactivity disorder, unspecified type; F19.90 Other psychoactive substance use, unspecified, uncomplicated | CPT/HCPCS: 99232 ==

== ENCOUNTER → 2024-10-14 17:34 | Outpatient (BNV) | payer MEDICAID, SELFPAY | PROVIDERS: Admitting Provider Psychiatry & Neurology Psychiatry; Visit Provider Internal Medicine | DX: F39 Unspecified mood [affective] disorder (principal); F90.9 Attention-deficit hyperactivity disorder, unspecified type; F19.90 Other psychoactive substance use, unspecified, uncomplicated; F32.A Depression, unspecified | CPT/HCPCS: 99222 ==